=== PATIENT | male | born 1965 | race African-American/Black ===

== ENCOUNTER 2016-11-15 16:26 | Observation (INO) | payer OTHER ==
[~2016-11-15] VITALS: Ht 185.4 cm; Wt 63.1 kg
[~2016-11-15 16:26] MED LIST: CEPHALEXIN500 MG PO; CLEOCIN IV; CLONAZEPAM0.5 MG PO; Catapres PO; Creon 24 PO; Dilaudid IV; ENDOCET 5-3251 EACH PO; FLEXERIL10 MG PO; HURRICAINE SPRA60 ML MM; LANTUS 3 M100 UNITS1 SC; LEVEMIR FL100 UNIT/1 SC; LEVEMIR100 UNIT/2 SC; LISINOPRIL10 MG PO; NIFEDIPINE ER60 MG PO; NOVOLOG PE100 UNITS/ SC; OXYCODONE-ACET1 EACH PO; OXYCODONE-APAP1 EACH PO; PERCOCET 5/31 TABLET PO; PRILOSEC40 MG; PriLOSEC PO; SERTRALINE HCL50 MG PO; SILVASORB1.5 OZ TP; VERAPAMIL HCL120 MG PO; Vicodin,Norco 5/325 PO; ZOSYN 3.3753.375 GM IV; Zestril,Prinivil PO
[2016-11-15 17:15] LABS: HEMATOCRIT 33.6 % (38.0-50.0); MCH 27.5 PG (29.0-34.0); MCHC 33.3 G/DL (30.0-36.0); MCV 82.6 FL (86-99); MEAN PLAT.VOLUME 10.9 uM^3 (9.0-12.4); PLATELET COUNT 219 K/uL (156-360); RBC DIS.WIDTH-CV 13.4 % (11.8-14.6); RBC DIS.WIDTH-SD 39.5 % (39-53); RED BLOOD COUNT 4.07 M/uL (4.00-5.50); WHITE BLOOD COUNT 9.3 K/uL (4.1-10.2)
[2016-11-15 17:35] LABS: CHLORIDE 103 mEq/L (99-109); SODIUM 135 mEq/L (136-147)
[2016-11-15 17:38] LABS: ANION GAP 7 MEQ/L (2-14)
[2016-11-15 17:40] LABS: GFR ESTIMATE (CALCULATED) > 59 mL/min/
[2016-11-15 17:41] LABS: TROP-I INTERPRETATION NEGATIVE; TROPONIN-I 0.02 ng/mL (0.0-0.30); UREA NITROGEN (BUN) 13 mg/dL (9-23)
[2016-11-15 17:43] LABS: CREATINE KINASE 164 IU/L (1-294); GLUCOSE 686 mg/dL (70-99)
[2016-11-15 18:38] LABS: POINT-OF-CARE METER ID UU14100415; POINT-OF-CARE USER ID LABGLH01
[2016-11-15] MEDS ORDERED: PRINIVIL10 MG PO (19:32)
[2016-11-15] MEDS ORDERED: OXYCODONE HCL20 M1 PO (19:33)
[2016-11-15] MEDS ORDERED: PERCOCET 5/31 TABLET PO (19:33)
[2016-11-15] MEDS ORDERED: CATAPRES0.1 MG PO (19:33)
[2016-11-15] MEDS ORDERED: NOVOLOG 10100 UNITS/ SC (19:34)
[2016-11-15] MEDS ORDERED: LEVEMIR100 UNIT/2 SC (19:34)
[2016-11-16 00:19] VITALS: BP 141/87
[2016-11-16 03:43] VITALS: BP 111/69
[2016-11-16 05:29] LABS: POINT-OF-CARE METER ID UU14162513
[2016-11-16 07:33] VITALS: BP 155/93
[2016-11-16 08:39] LABS: POINT-OF-CARE METER ID UU13113831
[2016-11-16 08:59] LABS: ANION GAP 6 MEQ/L (2-14); CHLORIDE 107 MEQ/L (99-109); GFR ESTIMATE (CALCULATED) > 59 mL/min/; POTASSIUM 3.7 MEQ/L (3.7-5.4); SAMPLE HEMOLYSIS CHECK 0; SAMPLE ICTERIC CHECK 0; SAMPLE LIPEMIA CHECK 0; SODIUM 138 MEQ/L (136-147); UREA NITROGEN (BUN) 10 mg/dL (9-23)
[2016-11-16 09:02] LABS: GLUCOSE 222 mg/dL (70-99)
[2016-11-16] MEDS ORDERED: LISINOPRIL10 MG PO (10:09)
[2016-11-16] MEDS ORDERED: VERAPAMIL HCL120 MG PO (10:09)
[2016-11-16 10:29] LABS: POINT-OF-CARE METER ID UU13113700
[2016-11-16 12:40] LABS: POINT-OF-CARE METER ID UU13113831
== END 2016-11-16 14:23 | disposition home or self-care (01) ==
LOC: EME → EDBD 16:26 → EDOF 20:01 → 5WEST 20:01
PROVIDERS: Emergency Medicine; Hospitalist; Internal Medicine
DX: I16.0 Hypertensive urgency (principal); I10 Essential (primary) hypertension; E11.65 Type 2 diabetes mellitus with hyperglycemia; N17.9 Acute kidney failure, unspecified; R42 Dizziness and giddiness; G89.29 Other chronic pain; R51 Headache; F17.200 Nicotine dependence, unspecified, uncomplicated; Z91.128 Patient's intentional underdosing of medication regimen for other reason; T46.4X6A Underdosing of angiotensin-converting-enzyme inhibitors, initial encounter; T38.3X6A Underdosing of insulin and oral hypoglycemic [antidiabetic] drugs, initial encounter; Z88.8 Allergy status to other drugs, medicaments and biological substances; Z91.041 Radiographic dye allergy status
CPT/HCPCS: 70450; 80048; 81003; 82009; 82010; 82550; 82948; 83036; 83930; 84484; 85027; 93005; 99281; 99285; G0378; J0780; J1200; J1650; J1815; J7030

== ENCOUNTER 2016-12-08 17:35 | Inpatient (IN) | payer OTHER ==
[~2016-12-08] VITALS: Ht 185.4 cm; Wt 65.3 kg
[~2016-12-08 17:35] MED LIST changes: +CATAPRES0.1 MG PO; +NOVOLOG 10100 UNITS/ SC; +OXYCODONE HCL20 M1 PO; +PRINIVIL10 MG PO
[2016-12-08 19:34] LABS: ADD MIUA? YES; BILIRUBIN NEGATIVE; BLOOD SMALL; COLOR STRAW ((YELLOW)); GLUCOSE (STRIP) >=500; KETONES NEGATIVE; LEUKOCYTES NEGATIVE; NITRITE NEGATIVE; PROTEIN (STRIP) 100; SPECIFIC GRAVITY 1.025 (1.000-1.030); UROBILINOGEN 0.2 MG/DL (0.2-1.0)
[2016-12-08 19:38] LABS: BACTERIA NONE SEEN /HPF; EPITHELIAL CELLS NONE SEEN /HPF; MUCUS NONE SEEN /LPF; RED BLOOD CELLS 0-5 /HPF (0-5); WHITE BLOOD CELLS 0-5 /HPF (0-5)
[2016-12-08 20:35] LABS: EOSINOPHIL (%) 0.1 % (0-5); HEMATOCRIT 35.4 % (38.0-50.0); IMMATURE GRANULOCYTE (%) 0.6 % (0.0-0.7); IMMATURE GRANULOCYTE COUNT 0.1 K/uL; INSTRUMENT ABS NEUTROPHIL CT 8.9 K/uL; MCH 26.7 PG (29.0-34.0); MCHC 32.5 G/DL (30.0-36.0); MCV 82.3 FL (86-99); MEAN PLAT.VOLUME 10.9 uM^3 (9.0-12.4); MONOCYTE (%) 7.4 % (3-12); MONOCYTE COUNT 0.8 K/uL (0-0.8); NEUTROPHIL (%) 82.4 % (45-76); NEUTROPHIL COUNT 8.9 K/uL (1.8-6.4); RBC DIS.WIDTH-CV 13.4 % (11.8-14.6); RBC DIS.WIDTH-SD 39.8 % (39-53); WHITE BLOOD COUNT 10.8 K/uL (4.1-10.2)
[2016-12-08 20:38] LABS: CARBON DIOXIDE (BICARBONATE) 28.5 MEQ/L (20-31)
[2016-12-08 20:39] LABS: PLATELET COUNT 312 K/uL (156-360)
[2016-12-08 20:49] LABS: CHLORIDE 101 mEq/L (99-109); POTASSIUM 3.8 mEq/L (3.7-5.4); SODIUM 135 mEq/L (136-147)
[2016-12-08 20:53] LABS: ANION GAP 10 MEQ/L (2-14); TOTAL BILIRUBIN 0.3 mg/dL (0.0-1.0)
[2016-12-08 20:55] LABS: ALKALINE PHOSPHATASE 233 IU/L (3-129); GFR ESTIMATE (CALCULATED) > 59 mL/min/
[2016-12-08 20:56] LABS: UREA NITROGEN (BUN) 14 mg/dL (9-23)
[2016-12-08 20:57] LABS: TROP-I INTERPRETATION NEGATIVE; TROPONIN-I 0.03 ng/mL (0.0-0.30)
[2016-12-08 21:08] LABS: GLUCOSE 746 mg/dL (70-99)
[2016-12-08] MEDS ORDERED: OXYCODONE HCL10 MG PO (22:46)
[2016-12-08 23:47] LABS: POINT-OF-CARE METER ID UU13113702; POINT-OF-CARE USER ID 608261302
[2016-12-09 04:52] LABS: POINT-OF-CARE METER ID UU13113702
[2016-12-09 06:56] LABS: HEMATOCRIT 36.3 % (38.0-50.0); MCH 26.5 PG (29.0-34.0); MCV 82.9 FL (86-99); MEAN PLAT.VOLUME 11.9 uM^3 (9.0-12.4); PLATELET COUNT 294 K/uL (156-360); RBC DIS.WIDTH-CV 13.5 % (11.8-14.6); RBC DIS.WIDTH-SD 40.8 % (39-53); RED BLOOD COUNT 4.38 M/uL (4.00-5.50); WHITE BLOOD COUNT 11.2 K/uL (4.1-10.2)
[2016-12-09 07:18] LABS: ANION GAP 11 MEQ/L (2-14); CHLORIDE 102 MEQ/L (99-109); CREATINE KINASE 224 IU/L (1-294); GFR ESTIMATE (CALCULATED) > 59 mL/min/; POTASSIUM 3.6 MEQ/L (3.7-5.4); SAMPLE HEMOLYSIS CHECK 0; SAMPLE ICTERIC CHECK 0; SAMPLE LIPEMIA CHECK 0; SODIUM 137 MEQ/L (136-147); UREA NITROGEN (BUN) 12 mg/dL (9-23)
[2016-12-09 07:24] LABS: GLUCOSE 271 mg/dL (70-99)
[2016-12-09 07:38] VITALS: BP 150/93
[2016-12-09 11:19] VITALS: BP 147/95
[2016-12-09 15:53] VITALS: BP 149/97
[2016-12-09 21:03] LABS: POINT-OF-CARE METER ID UU14188625; POINT-OF-CARE USER ID BHSKTD
[2016-12-09 21:29] LABS: C DIFF TOXIN POSITIVE (NEGATIVE); PROBE CHECK PASS
[2016-12-09 21:35] VITALS: BP 108/67
[2016-12-10 03:43] LABS: POINT-OF-CARE METER ID UU14188625; POINT-OF-CARE USER ID BHSKTD
[2016-12-10 03:48] VITALS: BP 118/71
[2016-12-10 05:43] LABS: POINT-OF-CARE METER ID UU14188625; POINT-OF-CARE USER ID BHSKTD
[2016-12-10 06:32] LABS: HEMATOCRIT 29.9 % (38.0-50.0); MCH 27.1 PG (29.0-34.0); MCHC 31.8 G/DL (30.0-36.0); MCV 85.2 FL (86-99); MEAN PLAT.VOLUME 11.5 uM^3 (9.0-12.4); PLATELET COUNT 267 K/uL (156-360); RBC DIS.WIDTH-SD 43.5 % (39-53); RED BLOOD COUNT 3.51 M/uL (4.00-5.50); WHITE BLOOD COUNT 11.3 K/uL (4.1-10.2)
[2016-12-10 06:58] LABS: ANION GAP 9 MEQ/L (2-14); CHLORIDE 105 MEQ/L (99-109); GFR ESTIMATE (CALCULATED) > 59 mL/min/; POTASSIUM 3.4 MEQ/L (3.7-5.4); SAMPLE HEMOLYSIS CHECK 0; SAMPLE ICTERIC CHECK 0; SAMPLE LIPEMIA CHECK 0; SODIUM 138 MEQ/L (136-147); UREA NITROGEN (BUN) 19 mg/dL (9-23)
[2016-12-10 07:03] LABS: GLUCOSE 66 mg/dL (70-99)
[2016-12-10 07:24] VITALS: BP 125/69
[2016-12-10 09:15] LABS: FERRITIN 90 NG/ML (22-322); IRON 33 MCG/DL (35-150)
[2016-12-10 11:07] VITALS: BP 126/77
[2016-12-10 12:36] LABS: POINT-OF-CARE METER ID UU14188625
[2016-12-10 13:02] LABS: HEMATOCRIT 29.6 % (38.0-50.0); MCV 85.8 FL (86-99)
[2016-12-10 15:22] VITALS: BP 116/69
[2016-12-10 16:21] LABS: CREATINE KINASE 187 IU/L (1-294)
[2016-12-10 18:09] LABS: POINT-OF-CARE METER ID UU14188625
[2016-12-10 18:30] LABS: POINT-OF-CARE METER ID UU14188625
[2016-12-10 19:29] VITALS: BP 172/94
[2016-12-10 21:29] LABS: POINT-OF-CARE METER ID UU14174225
[2016-12-11] VITALS (7 sets, daily range): BP systolic 125–180; BP diastolic 76–104
[2016-12-11 00:23] LABS: POINT-OF-CARE METER ID UU14188625; POINT-OF-CARE USER ID BHSKTD
[2016-12-11 05:23] LABS: POINT-OF-CARE METER ID UU14174225; POINT-OF-CARE USER ID BHSKTD
[2016-12-11 07:18] LABS: HEMATOCRIT 30.9 % (38.0-50.0); MCH 27.1 PG (29.0-34.0); MCHC 31.4 G/DL (30.0-36.0); MCV 86.3 FL (86-99); RBC DIS.WIDTH-CV 14.3 % (11.8-14.6); RBC DIS.WIDTH-SD 45.7 % (39-53); RED BLOOD COUNT 3.58 M/uL (4.00-5.50); WHITE BLOOD COUNT 12.5 K/uL (4.1-10.2)
[2016-12-11 07:21] LABS: ANION GAP 7 MEQ/L (2-14); CHLORIDE 107 MEQ/L (99-109); GFR ESTIMATE (CALCULATED) > 59 mL/min/; SAMPLE HEMOLYSIS CHECK 0; SAMPLE ICTERIC CHECK 0; SAMPLE LIPEMIA CHECK 0; SODIUM 139 MEQ/L (136-147); UREA NITROGEN (BUN) 18 mg/dL (9-23)
[2016-12-11 07:26] LABS: GLUCOSE 88 mg/dL (70-99); POTASSIUM 4.2 MEQ/L (3.7-5.4)
[2016-12-11 07:59] LABS: CREATINE KINASE 238 IU/L (1-294)
[2016-12-11 08:14] LABS: MEAN PLAT.VOLUME 12.6 uM^3 (9.0-12.4)
[2016-12-11 11:00] LABS: POINT-OF-CARE METER ID UU14188625
[2016-12-11 15:55] LABS: POINT-OF-CARE METER ID UU14188625
[2016-12-12 04:00] VITALS: BP 170/105
[2016-12-12 05:45] LABS: POINT-OF-CARE METER ID UU14174225
[2016-12-12 07:30] LABS: HEMATOCRIT 30.3 % (38.0-50.0); MCHC 31.4 G/DL (30.0-36.0); MCV 86.1 FL (86-99); MEAN PLAT.VOLUME 11.5 uM^3 (9.0-12.4); PLATELET COUNT 295 K/uL (156-360); RBC DIS.WIDTH-CV 14.5 % (11.8-14.6); RBC DIS.WIDTH-SD 45.8 % (39-53); RED BLOOD COUNT 3.52 M/uL (4.00-5.50); WHITE BLOOD COUNT 12.5 K/uL (4.1-10.2)
[2016-12-12 07:44] VITALS: BP 160/110
[2016-12-12 07:47] LABS: POINT-OF-CARE METER ID UU14174225
[2016-12-12 10:10] LABS: HBSG INDEX 0.18
[2016-12-12 10:12] LABS: HIV INDEX 0.08; HIV-1/2 AB/AG COMBO Nonreactive
[2016-12-12 11:18] VITALS: BP 162/105
[2016-12-12 13:26] LABS: JO-1 ANTIBODY 17 U/mL (0-99)
[2016-12-12 15:22] VITALS: BP 164/98
[2016-12-12 19:41] VITALS: BP 160/93
[2016-12-13] VITALS (7 sets, daily range): BP systolic 140–195; BP diastolic 77–115
[2016-12-13 03:06] LABS: POINT-OF-CARE METER ID UU14188625
[2016-12-13 06:56] LABS: HEMATOCRIT 30.4 % (38.0-50.0); MCHC 31.6 G/DL (30.0-36.0); MCV 85.6 FL (86-99); MEAN PLAT.VOLUME 11.5 uM^3 (9.0-12.4); PLATELET COUNT 313 K/uL (156-360); RBC DIS.WIDTH-CV 14.6 % (11.8-14.6); RBC DIS.WIDTH-SD 45.9 % (39-53); RED BLOOD COUNT 3.55 M/uL (4.00-5.50); WHITE BLOOD COUNT 11.2 K/uL (4.1-10.2)
[2016-12-13 07:33] LABS: ANION GAP 7 MEQ/L (2-14); CHLORIDE 105 MEQ/L (99-109); GFR ESTIMATE (CALCULATED) > 59 mL/min/; POTASSIUM 4.8 MEQ/L (3.7-5.4); SAMPLE HEMOLYSIS CHECK 0; SAMPLE ICTERIC CHECK 0; SAMPLE LIPEMIA CHECK 0; SODIUM 138 MEQ/L (136-147); UREA NITROGEN (BUN) 15 mg/dL (9-23)
[2016-12-13 07:35] LABS: GLUCOSE 337 mg/dL (70-99)
[2016-12-13 10:50] LABS: POINT-OF-CARE METER ID UU14188625
[2016-12-13 12:36] LABS: POINT-OF-CARE METER ID UU14188625
[2016-12-13 16:41] LABS: POINT-OF-CARE METER ID UU14188625
[2016-12-13 22:37] LABS: POINT-OF-CARE METER ID UU14174225
[2016-12-14] VITALS (9 sets, daily range): BP systolic 148–174; BP diastolic 80–110
[2016-12-14 07:26] LABS: EOSINOPHIL (%) 0.9 % (0-5); EOSINOPHIL COUNT 0.1 K/uL (0-0.3); HEMATOCRIT 30.5 % (38.0-50.0); IMMATURE GRANULOCYTE (%) 0.5 % (0.0-0.7); IMMATURE GRANULOCYTE COUNT 0.1 K/uL; INSTRUMENT ABS NEUTROPHIL CT 6.9 K/uL; LYMPHOCYTE COUNT 1.5 K/uL (1.0-2.8); MCH 26.8 PG (29.0-34.0); MCHC 31.1 G/DL (30.0-36.0); MCV 85.9 FL (86-99); MEAN PLAT.VOLUME 10.9 uM^3 (9.0-12.4); MONOCYTE (%) 7.3 % (3-12); MONOCYTE COUNT 0.7 K/uL (0-0.8); NEUTROPHIL (%) 75.2 % (45-76); NEUTROPHIL COUNT 6.9 K/uL (1.8-6.4); PLATELET COUNT 336 K/uL (156-360); RBC DIS.WIDTH-CV 14.7 % (11.8-14.6); RED BLOOD COUNT 3.55 M/uL (4.00-5.50); WHITE BLOOD COUNT 9.2 K/uL (4.1-10.2)
[2016-12-14 07:58] LABS: ANION GAP 7 MEQ/L (2-14); CHLORIDE 106 MEQ/L (99-109); GFR ESTIMATE (CALCULATED) > 59 mL/min/; POTASSIUM 4.1 MEQ/L (3.7-5.4); SAMPLE HEMOLYSIS CHECK 0; SAMPLE ICTERIC CHECK 0; SAMPLE LIPEMIA CHECK 0; SODIUM 140 MEQ/L (136-147); UREA NITROGEN (BUN) 12 mg/dL (9-23)
[2016-12-14 08:06] LABS: GLUCOSE 165 mg/dL (70-99)
[2016-12-14 08:15] LABS: POINT-OF-CARE METER ID UU14174225
[2016-12-14 08:58] LABS: ALKALINE PHOSPHATASE 89 IU/L (3-129); C-REACTIVE PROTEIN 26.8 MG/L (0-10); DIRECT BILIRUBIN 0.1 mg/dL (0.0-0.3); TOTAL BILIRUBIN 0.3 MG/DL (0.0-1.0)
[2016-12-14 12:03] LABS: POC NON-PRINT COM 1 ND
[2016-12-14 12:15] LABS: POINT-OF-CARE METER ID UU14174225
[2016-12-14 13:49] LABS: POINT-OF-CARE METER ID UU14174225
[2016-12-15 00:21] VITALS: BP 152/96
[2016-12-15 04:08] VITALS: BP 153/95
[2016-12-15 07:09] LABS: EOSINOPHIL (%) 1.3 % (0-5); EOSINOPHIL COUNT 0.1 K/uL (0-0.3); HEMATOCRIT 32.2 % (38.0-50.0); IMMATURE GRANULOCYTE COUNT 0.1 K/uL; LYMPHOCYTE COUNT 1.4 K/uL (1.0-2.8); MCH 26.4 PG (29.0-34.0); MCHC 30.7 G/DL (30.0-36.0); MCV 85.9 FL (86-99); MONOCYTE (%) 8.7 % (3-12); MONOCYTE COUNT 0.8 K/uL (0-0.8); NEUTROPHIL (%) 74.3 % (45-76); PLATELET COUNT 365 K/uL (156-360); RBC DIS.WIDTH-SD 47.5 % (39-53); RED BLOOD COUNT 3.75 M/uL (4.00-5.50); WHITE BLOOD COUNT 9.5 K/uL (4.1-10.2)
[2016-12-15 07:28] LABS: ANION GAP 9 MEQ/L (2-14); CHLORIDE 104 MEQ/L (99-109); GFR ESTIMATE (CALCULATED) > 59 mL/min/; GLUCOSE 146 mg/dL (70-99); POTASSIUM 4.3 MEQ/L (3.7-5.4); SAMPLE HEMOLYSIS CHECK 0; SAMPLE ICTERIC CHECK 0; SAMPLE LIPEMIA CHECK 0; SODIUM 141 MEQ/L (136-147); UREA NITROGEN (BUN) 11 mg/dL (9-23)
[2016-12-15 07:46] VITALS: BP 152/90
[2016-12-15 08:27] LABS: ERTH.SED.RATE 110 MM/HR (0-15)
[2016-12-15 11:56] VITALS: BP 148/82
[2016-12-15 16:04] VITALS: BP 150/84
[2016-12-15 20:00] VITALS: BP 160/83
[2016-12-15 20:59] LABS: M. pneumoniae Ab, IgG 1.72 (<=0.90)
[2016-12-15 21:49] LABS: POINT-OF-CARE METER ID UU14174225
[2016-12-16] VITALS: BP 145/65
[2016-12-16 04:00] VITALS: BP 150/73
[2016-12-16 07:33] LABS: EOSINOPHIL (%) 0.4 % (0-5); IMMATURE GRANULOCYTE COUNT 0.1 K/uL; INSTRUMENT ABS NEUTROPHIL CT 8.1 K/uL; LYMPHOCYTE COUNT 1.5 K/uL (1.0-2.8); MCH 26.5 PG (29.0-34.0); MCHC 30.6 G/DL (30.0-36.0); MCV 86.6 FL (86-99); MEAN PLAT.VOLUME 10.6 uM^3 (9.0-12.4); MONOCYTE (%) 9.7 % (3-12); MONOCYTE COUNT 1.1 K/uL (0-0.8); NEUTROPHIL (%) 74.5 % (45-76); NEUTROPHIL COUNT 8.1 K/uL (1.8-6.4); PLATELET COUNT 361 K/uL (156-360); RED BLOOD COUNT 3.58 M/uL (4.00-5.50); WHITE BLOOD COUNT 10.9 K/uL (4.1-10.2)
[2016-12-16 08:00] VITALS: BP 175/98
[2016-12-16 08:07] LABS: ANION GAP 10 MEQ/L (2-14); CHLORIDE 99 MEQ/L (99-109); GFR ESTIMATE (CALCULATED) > 59 mL/min/; SAMPLE HEMOLYSIS CHECK 0; SAMPLE ICTERIC CHECK 0; SAMPLE LIPEMIA CHECK 0; SODIUM 134 MEQ/L (136-147); UREA NITROGEN (BUN) 9 mg/dL (9-23)
[2016-12-16 08:08] LABS: GLUCOSE 233 mg/dL (70-99)
[2016-12-16 08:30] LABS: POINT-OF-CARE METER ID UU14188625; POINT-OF-CARE USER ID BHSKTD
[2016-12-16 08:42] LABS: POINT-OF-CARE METER ID UU14188625
[2016-12-16 08:42] LABS: POINT-OF-CARE METER ID UU14188625
[2016-12-16 11:56] LABS: ERTH.SED.RATE 119 MM/HR (0-15)
[2016-12-16 12:02] LABS: POINT-OF-CARE METER ID UU14174225
[2016-12-16] MEDS ORDERED: DYNAPEN 250 MG250 MG PO (12:19)
[2016-12-16] MEDS ORDERED: VANCOMYCIN HCL125 MG PO (12:19)
[2016-12-16] MEDS ORDERED: PREDNISONE20 MG PO (12:25)
[2016-12-16] MEDS ORDERED: LIDOCAINE700 MG TD (12:25)
[2016-12-16] MEDS ORDERED: OXYCODONE HCL5 MG PO ×2 (12:25)
[2016-12-16] MEDS ORDERED: FERROUS SULFAT325 MG PO (12:25)
[2016-12-16] MEDS ORDERED: FAMOTIDINE20 MG PO (12:25)
[2016-12-16] MEDS ORDERED: FLORASTOR250 MG GT (12:25)
== END 2016-12-16 15:42 | DRG 305 ==
LOC: EME → EDBD 17:35 → EME 17:35 → EDOF 12-09 03:55 → 5SOUTH 12-09 03:55
PROVIDERS: Emergency Medicine; Hospitalist; Internal Medicine; Internal Medicine Infectious Disease; Nurse Practitioner Adult Health; Physician Assistant Medical
PROC: 05HP33Z Insertion of Infusion Device into Right External Jugular Vein, Percutaneous Approach (ICD-10-PCS; principal; 2016-12-09)
DX: I16.0 Hypertensive urgency (principal); I67.4 Hypertensive encephalopathy; A04.7 Enterocolitis due to Clostridium difficile; N17.9 Acute kidney failure, unspecified; E11.65 Type 2 diabetes mellitus with hyperglycemia; D50.9 Iron deficiency anemia, unspecified; M60.9 Myositis, unspecified; G89.29 Other chronic pain; Z91.14 Patient's other noncompliance with medication regimen; M79.652 Pain in left thigh; R51 Headache; Z79.4 Long term (current) use of insulin; F17.210 Nicotine dependence, cigarettes, uncomplicated; E86.0 Dehydration; S89.92XA Unspecified injury of left lower leg, initial encounter; Z87.19 Personal history of other diseases of the digestive system; K21.9 Gastro-esophageal reflux disease without esophagitis
CPT/HCPCS: 70450; 71020; 73552; 73700; 73720; 80048; 80053; 80076; 81003; 82010; 82085 90; 82164 90; 82272; 82550; 82728; 82746; 82803; 82948; 83540; 83605; 84466; 84484; 85014; 85018; 85025; 85027; 85651; 86140; 86235; 86703; 86738 90; 86803; 87040; 87340; 87493; 93005; 93971; 97530 GP; 99281; 99285; J0360; J1644; J1815; J3010; J7030; J7050; J7512; S0030; S0032

== ENCOUNTER 2017-08-18 10:32 | Emergency (ER) | payer OTHER ==
[~2017-08-18] VITALS: Ht 185.4 cm; Wt 68.6 kg
[~2017-08-18 10:32] MED LIST changes: +DYNAPEN 250 MG250 MG PO; +FAMOTIDINE20 MG PO; +FERROUS SULFAT325 MG PO; +FLORASTOR250 MG GT; +LIDOCAINE700 MG TD; +OXYCODONE HCL10 MG PO; +OXYCODONE HCL5 MG PO; +PREDNISONE20 MG PO; +VANCOMYCIN HCL125 MG PO
[2017-08-18 12:15] VITALS: BP 168/116
== END 2017-08-18 12:04 | disposition left against medical advice (07) ==
LOC: EME 10:32
DX: I10 Essential (primary) hypertension (principal); E11.65 Type 2 diabetes mellitus with hyperglycemia; G89.29 Other chronic pain; M79.604 Pain in right leg; M79.605 Pain in left leg; Z91.14 Patient's other noncompliance with medication regimen; R60.0 Localized edema; Z79.4 Long term (current) use of insulin; F17.200 Nicotine dependence, unspecified, uncomplicated; Z53.29 Procedure and treatment not carried out because of patient's decision for other reasons

== ENCOUNTER 2017-08-23 09:17 | Observation (INO) | payer OTHER ==
[~2017-08-23] VITALS: Ht 185.4 cm; Wt 68.6 kg
[2017-08-23] MEDS ORDERED: ASPIRIN81 M2 PO (09:50)
[2017-08-23 10:15] LABS: EOSINOPHIL (%) 0.4 % (0-5); HEMATOCRIT 32.6 % (38.0-50.0); IMMATURE GRANULOCYTE (%) 0.3 % (0.0-0.7); INSTRUMENT ABS NEUTROPHIL CT 5.9 K/uL; LYMPHOCYTE COUNT 1.1 K/uL (1.0-2.8); MCH 26.8 PG (29.0-34.0); MCHC 32.8 G/DL (30.0-36.0); MCV 81.5 FL (86-99); MEAN PLAT.VOLUME 11.2 uM^3 (9.0-12.4); MONOCYTE (%) 6.3 % (3-12); MONOCYTE COUNT 0.5 K/uL (0-0.8); NEUTROPHIL (%) 78.1 % (45-76); NEUTROPHIL COUNT 5.9 K/uL (1.8-6.4); PLATELET COUNT 185 K/uL (156-360); RBC DIS.WIDTH-CV 13.7 % (11.8-14.6); RBC DIS.WIDTH-SD 40.8 % (39-53); WHITE BLOOD COUNT 7.5 K/uL (4.1-10.2)
[2017-08-23 10:16] LABS: CARBON DIOXIDE (BICARBONATE) 30.5 MEQ/L (20-31)
[2017-08-23 10:24] LABS: CHLORIDE 99 mEq/L (99-109); POTASSIUM 3.7 mEq/L (3.7-5.4); SODIUM 133 mEq/L (136-147)
[2017-08-23 10:27] LABS: ANION GAP 8 MEQ/L (2-14); GLUCOSE 655 mg/dL (70-99)
[2017-08-23 10:29] LABS: GFR ESTIMATE (CALCULATED) > 59 mL/min/
[2017-08-23 10:30] LABS: UREA NITROGEN (BUN) 7 mg/dL (9-23)
[2017-08-23 11:18] LABS: ADD MIUA? YES; BILIRUBIN NEGATIVE; BLOOD SMALL; COLOR STRAW ((YELLOW)); GLUCOSE (STRIP) >=500; KETONES NEGATIVE; LEUKOCYTES NEGATIVE; NITRITE NEGATIVE; PROTEIN (STRIP) 100; SPECIFIC GRAVITY 1.023 (1.000-1.030); UROBILINOGEN 0.2 MG/DL (0.2-1.0)
[2017-08-23 11:21] LABS: BACTERIA NONE SEEN /HPF; EPITHELIAL CELLS NONE SEEN /HPF; MUCUS NONE SEEN /LPF; RED BLOOD CELLS 0-5 /HPF (0-5); WHITE BLOOD CELLS 0-5 /HPF (0-5)
[2017-08-23 12:34] LABS: TROP-I INTERPRETATION NEGATIVE; TROPONIN-I 0.01 ng/mL (0.0-0.30)
[2017-08-23] MEDS ORDERED: LISINOPRIL10 MG PO (12:57)
[2017-08-23] MEDS ORDERED: VERAPAMIL HCL120 MG PO (12:58)
[2017-08-23] MEDS ORDERED: FUROSEMIDE40 MG PO (12:59)
[2017-08-23] MEDS ORDERED: MOTRIN IB200 MG PO (13:00)
[2017-08-23 13:53] VITALS: BP 119/73
[2017-08-23 17:41] VITALS: BP 146/88
[2017-08-23 18:48] LABS: TROP-I INTERPRETATION NEGATIVE; TROPONIN-I < 0.01 ng/mL (0.0-0.30)
[2017-08-23 20:00] VITALS: BP 145/95
[2017-08-23 21:25] LABS: POINT-OF-CARE METER ID UU13113700
[2017-08-23 23:20] LABS: POINT-OF-CARE METER ID UU13113700
[2017-08-23 23:44] LABS: POINT-OF-CARE METER ID UU13113700
[2017-08-23 23:49] VITALS: BP 126/75
[2017-08-24 01:17] LABS: TROP-I INTERPRETATION NEGATIVE; TROPONIN-I < 0.01 ng/mL (0.0-0.30)
[2017-08-24 03:44] LABS: POINT-OF-CARE METER ID UU13113700
[2017-08-24 03:47] VITALS: BP 143/81
[2017-08-24 05:08] LABS: CHLORIDE 106 mEq/L (99-109); SODIUM 134 mEq/L (136-147)
[2017-08-24 05:11] LABS: ANION GAP 7 MEQ/L (2-14)
[2017-08-24 05:14] LABS: GFR ESTIMATE (CALCULATED) > 59 mL/min/
[2017-08-24 05:15] LABS: GLUCOSE 231 mg/dL (70-99); UREA NITROGEN (BUN) 11 mg/dL (9-23)
[2017-08-24 06:58] VITALS: BP 139/88
[2017-08-24 07:35] LABS: HEMOGLOBIN A1c (GLYCOHEMOGLOB) > 19.2 % HGB (Below 5.7)
[2017-08-24] MEDS ORDERED: CATAPRES0.1 MG PO (08:27)
[2017-08-24] MEDS ORDERED: VERAPAMIL HCL120 MG PO (08:27)
[2017-08-24] MEDS ORDERED: SERTRALINE HCL50 MG PO (08:28)
[2017-08-24] MEDS ORDERED: LISINOPRIL10 MG PO (08:28)
[2017-08-24] MEDS ORDERED: FUROSEMIDE40 MG PO (08:28)
[2017-08-24] MEDS ORDERED: NOVOLOG 10100 UNITS/ SC (08:29)
[2017-08-24] MEDS ORDERED: LEVEMIR100 UNIT/2 SC (08:29)
[2017-08-24 08:41] LABS: POINT-OF-CARE METER ID UU13113831
[2017-08-24 14:30] LABS: POINT-OF-CARE METER ID UU13113702
[2017-08-24 14:32] LABS: POINT-OF-CARE METER ID UU13113831
[2017-08-24 14:32] LABS: POINT-OF-CARE METER ID UU13113702
== END 2017-08-24 11:25 | disposition home or self-care (01) ==
LOC: EME 09:17 → EDOF 11:32 → 5WEST 11:32 → ENRESERV 11:35 → EDOF 11:39 → ENRESERV 12:15 → 5WEST 13:35
PROVIDERS: Emergency Medicine; Internal Medicine; Physician Assistant
DX: E11.65 Type 2 diabetes mellitus with hyperglycemia (principal); I16.0 Hypertensive urgency; I10 Essential (primary) hypertension; T46.5X6A Underdosing of other antihypertensive drugs, initial encounter; T38.3X6A Underdosing of insulin and oral hypoglycemic [antidiabetic] drugs, initial encounter; Z91.14 Patient's other noncompliance with medication regimen; Z91.19 Patient's noncompliance with other medical treatment and regimen; F17.200 Nicotine dependence, unspecified, uncomplicated; D64.9 Anemia, unspecified; E87.1 Hypo-osmolality and hyponatremia; I51.7 Cardiomegaly; Z79.4 Long term (current) use of insulin; Z91.041 Radiographic dye allergy status; Z88.8 Allergy status to other drugs, medicaments and biological substances
CPT/HCPCS: 71010; 80048; 81003; 82010; 82803; 82948; 83036; 84484; 85025; 93005; 99202; 99281; 99285; G0378; J0360; J1650; J1815; J7030

== ENCOUNTER 2018-01-03 07:58 | Inpatient (IN) | payer OTHER ==
[~2018-01-03] VITALS: Ht 185.4 cm; Wt 82.5 kg
[~2018-01-03 07:58] MED LIST changes: +ASPIRIN81 M2 PO; +FUROSEMIDE40 MG PO; +MOTRIN IB200 MG PO
[2018-01-03 08:50] LABS: BASOPHIL (%) 0.4 % (0-1); EOSINOPHIL (%) 0.5 % (0-5); HEMATOCRIT 32.7 % (38.0-50.0); HEMOGLOBIN 10.7 G/DL (12.5-16.6); IMMATURE GRANULOCYTE (%) 0.2 % (0.0-0.7); LYMPHOCYTE (%) 11.2 % (15-42); LYMPHOCYTE COUNT 0.9 K/uL (1.0-2.8); MCH 27.7 PG (29.0-34.0); MCHC 32.7 G/DL (30.0-36.0); MCV 84.7 FL (86-99); MONOCYTE (%) 5.3 % (3-12); MONOCYTE COUNT 0.4 K/uL (0-0.8); NEUTROPHIL (%) 82.4 % (45-76); NEUTROPHIL COUNT 6.7 K/uL (1.8-6.4); PLATELET COUNT 239 K/uL (156-360); RBC DIS.WIDTH-CV 12.7 % (11.8-14.6); RBC DIS.WIDTH-SD 38.6 % (39-53); RED BLOOD COUNT 3.86 M/uL (4.00-5.50); WHITE BLOOD COUNT 8.2 K/uL (4.1-10.2)
[2018-01-03 09:01] LABS: CHLORIDE 97 mEq/L (99-109); POTASSIUM 4.1 mEq/L (3.7-5.4); SODIUM 130 mEq/L (136-147)
[2018-01-03 09:06] LABS: CREATININE 1.7 mg/dL (0.6-1.3); GFR ESTIMATE (CALCULATED) 55 mL/min/ (58.99-99999)
[2018-01-03 09:07] LABS: UREA NITROGEN (BUN) 14 mg/dL (9-23)
[2018-01-03 09:08] LABS: GLUCOSE 706 mg/dL (70-99)
[2018-01-03 09:11] LABS: TROP-I INTERPRETATION NEGATIVE; TROPONIN-I 0.03 ng/mL (0.0-0.30)
[2018-01-03 10:22] LABS: APPEARANCE CLEAR ((CLEAR)); BILIRUBIN NEGATIVE; BLOOD SMALL; COLOR STRAW ((YELLOW)); GLUCOSE (STRIP) >=500; KETONES NEGATIVE; LEUKOCYTES NEGATIVE; NITRITE NEGATIVE; PROTEIN (STRIP) >=500; SPECIFIC GRAVITY 1.026 (1.000-1.030); UROBILINOGEN 0.2 MG/DL (0.2-1.0)
[2018-01-03 10:30] LABS: BACTERIA RARE /HPF; EPITHELIAL CELLS RARE /HPF; MUCUS NONE SEEN /LPF; UCUL ADDED? NO; WHITE BLOOD CELLS 0-5 /HPF (0-5)
[2018-01-03] MEDS ORDERED: NOVOLOG PE100 UNITS/ SC (12:52)
[2018-01-03 15:45] LABS: TROP-I INTERPRETATION NEGATIVE; TROPONIN-I 0.04 ng/mL (0.0-0.30)
[2018-01-03 17:50] VITALS: BP 187/125
[2018-01-03 18:03] VITALS: BP 177/111
[2018-01-03 19:20] VITALS: BP 130/80
[2018-01-03 21:33] LABS: TROP-I INTERPRETATION NEGATIVE; TROPONIN-I 0.04 ng/mL (0.0-0.30)
[2018-01-04 00:21] VITALS: BP 96/52
[2018-01-04 03:31] VITALS: BP 98/52
[2018-01-04 04:52] LABS: HEMATOCRIT 28.5 % (38.0-50.0); HEMOGLOBIN 9.5 G/DL (12.5-16.6); MCH 27.8 PG (29.0-34.0); MCHC 33.3 G/DL (30.0-36.0); MCV 83.3 FL (86-99); PLATELET COUNT 221 K/uL (156-360); RBC DIS.WIDTH-CV 12.4 % (11.8-14.6); RED BLOOD COUNT 3.42 M/uL (4.00-5.50); WHITE BLOOD COUNT 7.1 K/uL (4.1-10.2)
[2018-01-04 05:03] LABS: POTASSIUM 4.1 mEq/L (3.7-5.4); SODIUM 136 mEq/L (136-147)
[2018-01-04 05:09] LABS: UREA NITROGEN (BUN) 16 mg/dL (9-23)
[2018-01-04 05:12] LABS: CHLORIDE 108 mEq/L (99-109); GLUCOSE 139 mg/dL (70-99)
[2018-01-04 05:39] LABS: CREATININE 1.5 mg/dL (0.6-1.3); GFR ESTIMATE (CALCULATED) > 59 mL/min/ (58.99-99999)
[2018-01-04 09:15] VITALS: BP 109/67
[2018-01-04 10:11] LABS: HEMOGLOBIN A1c (GLYCOHEMOGLOB) 18.7 % (Below 5.7)
[2018-01-04 11:40] VITALS: BP 94/57
[2018-01-04 17:02] LABS: GLUCOSE 33 mg/dL (70-99)
[2018-01-04 19:56] VITALS: BP 161/97
[2018-01-05] VITALS (7 sets, daily range): BP systolic 132–165; BP diastolic 76–94
[2018-01-05 05:49] LABS: BASOPHIL (%) 0.2 % (0-1); EOSINOPHIL (%) 0.2 % (0-5); HEMATOCRIT 29.5 % (38.0-50.0); HEMOGLOBIN 9.7 G/DL (12.5-16.6); IMMATURE GRANULOCYTE (%) 0.3 % (0.0-0.7); LYMPHOCYTE (%) 9.3 % (15-42); LYMPHOCYTE COUNT 0.9 K/uL (1.0-2.8); MCH 27.5 PG (29.0-34.0); MCHC 32.9 G/DL (30.0-36.0); MCV 83.6 FL (86-99); MONOCYTE (%) 6.2 % (3-12); MONOCYTE COUNT 0.6 K/uL (0-0.8); NEUTROPHIL (%) 83.8 % (45-76); NEUTROPHIL COUNT 8.1 K/uL (1.8-6.4); PLATELET COUNT 221 K/uL (156-360); RBC DIS.WIDTH-CV 12.9 % (11.8-14.6); RBC DIS.WIDTH-SD 38.7 % (39-53); RED BLOOD COUNT 3.53 M/uL (4.00-5.50); WHITE BLOOD COUNT 9.7 K/uL (4.1-10.2)
[2018-01-05 06:29] LABS: CHLORIDE 104 mEq/L (99-109); POTASSIUM 3.9 mEq/L (3.7-5.4); SODIUM 135 mEq/L (136-147)
[2018-01-05 06:33] LABS: GLUCOSE 122 mg/dL (70-99)
[2018-01-05 06:34] LABS: CREATININE 1.4 mg/dL (0.6-1.3); GFR ESTIMATE (CALCULATED) > 59 mL/min/ (58.99-99999)
[2018-01-05 06:35] LABS: UREA NITROGEN (BUN) 20 mg/dL (9-23)
[2018-01-06 04:30] VITALS: BP 164/99
[2018-01-06 06:25] LABS: BASOPHIL (%) 0.2 % (0-1); EOSINOPHIL (%) 0.2 % (0-5); HEMATOCRIT 30.2 % (38.0-50.0); HEMOGLOBIN 9.8 G/DL (12.5-16.6); IMMATURE GRANULOCYTE (%) 0.3 % (0.0-0.7); INTER. NORMALIZED RATIO 0.9; LYMPHOCYTE (%) 9.8 % (15-42); LYMPHOCYTE COUNT 0.9 K/uL (1.0-2.8); MCH 27.8 PG (29.0-34.0); MCHC 32.5 G/DL (30.0-36.0); MCV 85.8 FL (86-99); MONOCYTE (%) 7.3 % (3-12); MONOCYTE COUNT 0.7 K/uL (0-0.8); NEUTROPHIL (%) 82.2 % (45-76); NEUTROPHIL COUNT 7.3 K/uL (1.8-6.4); PLATELET COUNT 222 K/uL (156-360); RBC DIS.WIDTH-CV 13.2 % (11.8-14.6); RBC DIS.WIDTH-SD 41.2 % (39-53); RED BLOOD COUNT 3.52 M/uL (4.00-5.50); WHITE BLOOD COUNT 8.9 K/uL (4.1-10.2)
[2018-01-06 06:28] LABS: PTT 27.5 SEC (25-37)
[2018-01-06 06:43] LABS: ALBUMIN 2.4 G/DL (3.2-4.8); ALKALINE PHOSPHATASE 166 IU/L (3-129); ALT (GPT) 66 IU/L (3-49); AST (GOT) 72 IU/L (2-34); CHLORIDE 103 MEQ/L (99-109); CREATININE 1.4 MG/DL (0.6-1.3); GFR ESTIMATE (CALCULATED) > 59 mL/min/ (58.99-99999); POTASSIUM 4.5 MEQ/L (3.7-5.4); SODIUM 135 MEQ/L (136-147); TOTAL BILIRUBIN 0.2 MG/DL (0.0-1.0); TOTAL PROTEIN 5.4 G/DL (6.4-8.3); UREA NITROGEN (BUN) 23 mg/dL (9-23)
[2018-01-06 06:47] LABS: GLUCOSE 387 mg/dL (70-99)
[2018-01-06 07:26] VITALS: BP 162/92
[2018-01-06 10:51] LABS: MAGNESIUM 1.9 mg/dl (1.3-2.7)
[2018-01-06 11:29] VITALS: BP 114/64
[2018-01-06 15:00] VITALS: BP 132/78
[2018-01-06 19:15] VITALS: BP 155/94
[2018-01-07] VITALS (9 sets, daily range): BP systolic 100–190; BP diastolic 56–98
[2018-01-07 06:20] LABS: HEMATOCRIT 27.4 % (38.0-50.0); HEMOGLOBIN 8.7 G/DL (12.5-16.6); MCH 27.3 PG (29.0-34.0); MCHC 31.8 G/DL (30.0-36.0); MCV 85.9 FL (86-99); PLATELET COUNT 205 K/uL (156-360); RBC DIS.WIDTH-CV 13.1 % (11.8-14.6); RBC DIS.WIDTH-SD 41.3 % (39-53); RED BLOOD COUNT 3.19 M/uL (4.00-5.50); WHITE BLOOD COUNT 8.8 K/uL (4.1-10.2)
[2018-01-07 06:56] LABS: CHLORIDE 104 MEQ/L (99-109); CREATININE 1.3 MG/DL (0.6-1.3); GFR ESTIMATE (CALCULATED) > 59 mL/min/ (58.99-99999); GLUCOSE 282 mg/dL (70-99); MAGNESIUM 1.8 mg/dl (1.3-2.7); POTASSIUM 4.5 MEQ/L (3.7-5.4); SODIUM 137 MEQ/L (136-147); UREA NITROGEN (BUN) 24 mg/dL (9-23)
[2018-01-08] VITALS (8 sets, daily range): BP systolic 126–181; BP diastolic 70–109
[2018-01-08 05:55] LABS: HEMATOCRIT 27.6 % (38.0-50.0); HEMOGLOBIN 8.7 G/DL (12.5-16.6); MCH 26.9 PG (29.0-34.0); MCHC 31.5 G/DL (30.0-36.0); MCV 85.4 FL (86-99); PLATELET COUNT 210 K/uL (156-360); RBC DIS.WIDTH-CV 13.2 % (11.8-14.6); RBC DIS.WIDTH-SD 40.6 % (39-53); RED BLOOD COUNT 3.23 M/uL (4.00-5.50); WHITE BLOOD COUNT 9.9 K/uL (4.1-10.2)
[2018-01-08 06:24] LABS: CHLORIDE 105 MEQ/L (99-109); CREATININE 1.4 MG/DL (0.6-1.3); GFR ESTIMATE (CALCULATED) > 59 mL/min/ (58.99-99999); GLUCOSE 194 mg/dL (70-99); MAGNESIUM 1.7 mg/dl (1.3-2.7); POTASSIUM 3.9 MEQ/L (3.7-5.4); SODIUM 138 MEQ/L (136-147); UREA NITROGEN (BUN) 22 mg/dL (9-23)
[2018-01-09 03:57] VITALS: BP 183/90
[2018-01-09 04:05] VITALS: BP 148/86
[2018-01-09 06:01] LABS: BASOPHIL (%) 0.4 % (0-1); EOSINOPHIL (%) 1.7 % (0-5); EOSINOPHIL COUNT 0.1 K/uL (0-0.3); HEMATOCRIT 27.3 % (38.0-50.0); HEMOGLOBIN 8.6 G/DL (12.5-16.6); IMMATURE GRANULOCYTE (%) 0.7 % (0.0-0.7); LYMPHOCYTE (%) 18.1 % (15-42); LYMPHOCYTE COUNT 1.5 K/uL (1.0-2.8); MCH 27.4 PG (29.0-34.0); MCHC 31.5 G/DL (30.0-36.0); MCV 86.9 FL (86-99); MONOCYTE (%) 12.5 % (3-12); NEUTROPHIL (%) 66.6 % (45-76); NEUTROPHIL COUNT 5.5 K/uL (1.8-6.4); PLATELET COUNT 227 K/uL (156-360); RBC DIS.WIDTH-CV 13.4 % (11.8-14.6); RBC DIS.WIDTH-SD 41.7 % (39-53); RED BLOOD COUNT 3.14 M/uL (4.00-5.50); WHITE BLOOD COUNT 8.2 K/uL (4.1-10.2)
[2018-01-09 06:11] LABS: CHLORIDE 107 MEQ/L (99-109); CREATININE 1.4 MG/DL (0.6-1.3); GFR ESTIMATE (CALCULATED) > 59 mL/min/ (58.99-99999); GLUCOSE 137 mg/dL (70-99); POTASSIUM 4.3 MEQ/L (3.7-5.4); SODIUM 142 MEQ/L (136-147); UREA NITROGEN (BUN) 24 mg/dL (9-23)
[2018-01-09 07:38] VITALS: BP 154/89
[2018-01-09 11:42] VITALS: BP 139/78
[2018-01-09 16:14] VITALS: BP 111/64
[2018-01-09 23:52] VITALS: BP 116/63
[2018-01-10 07:39] VITALS: BP 145/87
[2018-01-10 10:36] LABS: HEMATOCRIT 30.7 % (38.0-50.0); HEMOGLOBIN 9.5 G/DL (12.5-16.6); MCH 26.9 PG (29.0-34.0); MCHC 30.9 G/DL (30.0-36.0); PLATELET COUNT 270 K/uL (156-360); RBC DIS.WIDTH-CV 13.3 % (11.8-14.6); RBC DIS.WIDTH-SD 41.8 % (39-53); RED BLOOD COUNT 3.53 M/uL (4.00-5.50); WHITE BLOOD COUNT 9.8 K/uL (4.1-10.2)
[2018-01-10 11:07] LABS: CHLORIDE 104 MEQ/L (99-109); CREATININE 1.4 MG/DL (0.6-1.3); GFR ESTIMATE (CALCULATED) > 59 mL/min/ (58.99-99999); GLUCOSE 166 mg/dL (70-99); POTASSIUM 4.2 MEQ/L (3.7-5.4); SODIUM 140 MEQ/L (136-147); UREA NITROGEN (BUN) 26 mg/dL (9-23)
[2018-01-10 17:21] VITALS: BP 130/76
[2018-01-11 00:53] VITALS: BP 128/78
[2018-01-11 08:02] VITALS: BP 166/95
[2018-01-11] MEDS ORDERED: LEVEMIR100 UNIT/2 SC (08:15)
[2018-01-11] MEDS ORDERED: LOPRESSOR25 MG PO (08:15)
[2018-01-11] MEDS ORDERED: TAMSULOSIN HCL0.4 MG PO (08:15)
[2018-01-11] MEDS ORDERED: NICOTINE PATCH1 EAC2 TD (08:15)
[2018-01-11] MEDS ORDERED: LISINOPRIL10 MG PO (08:15)
[2018-01-11] MEDS ORDERED: NOVOLOG PE100 UNITS/ SC (08:15)
[2018-01-11] MEDS ORDERED: FUROSEMIDE40 MG PO ×2 (08:15→08:20)
[2018-01-11 10:04] LABS: CHLORIDE 105 MEQ/L (99-109); CREATININE 1.3 MG/DL (0.6-1.3); GFR ESTIMATE (CALCULATED) > 59 mL/min/ (58.99-99999); POTASSIUM 4.3 MEQ/L (3.7-5.4); SODIUM 142 MEQ/L (136-147); UREA NITROGEN (BUN) 26 mg/dL (9-23)
[2018-01-11 10:07] LABS: GLUCOSE 110 mg/dL (70-99)
[2018-01-11 15:38] VITALS: BP 135/83
== END 2018-01-11 15:50 | DRG 682 ==
LOC: EME → EDBD 07:58 → EME 07:58 → EDOF 11:30 → 4EAST 11:30 → 3EAST 11:30 → ENRESERV 11:52 → EDOF 11:55 → ENRESERV 15:14 → 4EAST 17:26 → ENRESERV 01-04 15:24 → CANRESERV 01-04 15:50 → ENRESERV 01-04 15:50 → 4EAST 01-04 17:42 → CANRESERV 01-07 14:47 → ENRESERV 01-07 14:47 → 3EAST 01-07 17:08
PROVIDERS: Emergency Medicine; Hospitalist; Internal Medicine
DX: N17.9 Acute kidney failure, unspecified (principal); I16.0 Hypertensive urgency; I13.0 Hypertensive heart and chronic kidney disease with heart failure and stage 1 through stage 4 chronic kidney disease, or unspecified chronic kidney disease; I50.33 Acute on chronic diastolic (congestive) heart failure; E11.65 Type 2 diabetes mellitus with hyperglycemia; Z91.14 Patient's other noncompliance with medication regimen; E11.649 Type 2 diabetes mellitus with hypoglycemia without coma; E88.09 Other disorders of plasma-protein metabolism, not elsewhere classified; E11.22 Type 2 diabetes mellitus with diabetic chronic kidney disease; N18.9 Chronic kidney disease, unspecified; D64.9 Anemia, unspecified; K21.9 Gastro-esophageal reflux disease without esophagitis; K86.1 Other chronic pancreatitis; N40.1 Benign prostatic hyperplasia with lower urinary tract symptoms; R33.8 Other retention of urine; R31.29 Other microscopic hematuria; F32.9 Major depressive disorder, single episode, unspecified; F41.9 Anxiety disorder, unspecified; R07.9 Chest pain, unspecified; F17.200 Nicotine dependence, unspecified, uncomplicated; Z90.5 Acquired absence of kidney; Z59.0 Homelessness; Z79.4 Long term (current) use of insulin; Z86.73 Personal history of transient ischemic attack (TIA), and cerebral infarction without residual deficits; Z79.82 Long term (current) use of aspirin; Z88.5 Allergy status to narcotic agent; Z91.041 Radiographic dye allergy status
CPT/HCPCS: 71045; 74176; 74181; 76870; 80048; 80053; 81003; 82948; 83036; 83605; 83735; 83880; 84153; 84484; 84999; 85025; 85027; 85610; 85730; 93005; 93306; 93970; 93971; 97530 GO; 99202; 99281; 99285; J0360; J1644; J1815; J1940; J3010; J7030; P9047

== ENCOUNTER → 2018-03-08 | Outpatient (CLI) | payer OTHER ==
[~2018-03-08] MED LIST changes: +LOPRESSOR25 MG PO; +NICOTINE PATCH1 EAC2 TD; +TAMSULOSIN HCL0.4 MG PO
== END | disposition home or self-care (01) ==
LOC: RAD 08:30
DX: J90 Pleural effusion, not elsewhere classified (principal); R06.02 Shortness of breath; R09.02 Hypoxemia
CPT/HCPCS: 71250

== ENCOUNTER 2018-03-31 18:04 | Inpatient (IN) | payer OTHER ==
[~2018-03-31] VITALS: Ht 185.4 cm; Wt 101.0 kg
[2018-03-31 20:20] LABS: HEMATOCRIT 32.4 % (38.0-50.0); HEMOGLOBIN 10.2 G/DL (12.5-16.6); MCH 26.5 PG (29.0-34.0); MCHC 31.5 G/DL (30.0-36.0); MCV 84.2 FL (86-99); PLATELET COUNT 176 K/uL (156-360); RBC DIS.WIDTH-CV 15.9 % (11.8-14.6); RBC DIS.WIDTH-SD 49.1 % (39-53); RED BLOOD COUNT 3.85 M/uL (4.00-5.50); WHITE BLOOD COUNT 7.6 K/uL (4.1-10.2)
[2018-03-31 20:30] LABS: ALBUMIN 3.7 g/dL (3.2-4.8); CHLORIDE 112 mEq/L (99-109); POTASSIUM 5.6 mEq/L (3.7-5.4); SODIUM 139 mEq/L (136-147)
[2018-03-31 20:32] LABS: GLUCOSE 207 mg/dL (70-99); TOTAL PROTEIN 6.3 g/dL (6.4-8.3)
[2018-03-31 20:34] LABS: TOTAL BILIRUBIN 0.5 mg/dL (0.0-1.0)
[2018-03-31 20:36] LABS: ALKALINE PHOSPHATASE 209 IU/L (3-129); CREATININE 2.3 mg/dL (0.6-1.3); GFR ESTIMATE (CALCULATED) 39 mL/min/ (58.99-99999)
[2018-03-31 20:37] LABS: AST (GOT) 178 IU/L (2-34); UREA NITROGEN (BUN) 35 mg/dL (9-23)
[2018-03-31 20:39] LABS: ALT (GPT) 146 IU/L (3-49); LIPASE 9 U/L (1.0-51.0)
[2018-03-31 21:06] LABS: MAGNESIUM 1.8 mg/dl (1.3-2.7)
[2018-03-31 21:23] LABS: THYROTROPIN (TSH) 8.6 MIU/L (0.4-5.5)
[2018-03-31] MEDS ORDERED: ALDACTONE25 MG PO (22:14)
[2018-03-31] MEDS ORDERED: ASCORBIC ACID250 MG PO (22:15)
[2018-03-31] MEDS ORDERED: BASAGLAR K100 UNIT/1 SC (22:16)
[2018-03-31] MEDS ORDERED: CATAPRES0.1 MG PO (22:17)
[2018-03-31] MEDS ORDERED: FERROUS SULFAT325 MG PO (22:18)
[2018-03-31] MEDS ORDERED: LASIX40 MG PO (22:18)
[2018-03-31] MEDS ORDERED: SERTRALINE HCL100 MG PO (22:19)
[2018-03-31] MEDS ORDERED: FLOMAX0.4 MG PO (22:20)
[2018-03-31] MEDS ORDERED: ACETAMINOPHEN650 M5 PO (22:21)
[2018-03-31] MEDS ORDERED: METOPROLOL TAR100 MG PO (22:23)
[2018-03-31] MEDS ORDERED: HYDRALAZINE HCL50 MG PO (22:25)
[2018-03-31] MEDS ORDERED: VERAPAMIL HCL80 MG PO (22:25)
[2018-03-31] MEDS ORDERED: NOVOLOG PE100 UNITS/ SC (22:27)
[2018-03-31] MEDS ORDERED: CATAPRES0.2 MG PO (22:30)
[2018-03-31] MEDS ORDERED: ANTIVERT12.5 MG PO (22:31)
[2018-03-31] MEDS ORDERED: DUONEB 2.5-0.5 M3 ML AEROSOL (22:31)
[2018-03-31] MEDS ORDERED: PERCOCET 5/31 TABLET PO ×2 (22:32→22:33)
[2018-03-31] MEDS ORDERED: TYLENOL REGULA325 MG PO (22:37)
[2018-04-01] VITALS (8 sets, daily range): BP systolic 105–186; BP diastolic 58–119
[2018-04-01 03:18] LABS: HEMATOCRIT 32.3 % (38.0-50.0); HEMOGLOBIN 10.3 G/DL (12.5-16.6); MCH 26.8 PG (29.0-34.0); MCHC 31.9 G/DL (30.0-36.0); MCV 83.9 FL (86-99); PLATELET COUNT 168 K/uL (156-360); RBC DIS.WIDTH-CV 16.2 % (11.8-14.6); RBC DIS.WIDTH-SD 49.1 % (39-53); RED BLOOD COUNT 3.85 M/uL (4.00-5.50); WHITE BLOOD COUNT 7.4 K/uL (4.1-10.2)
[2018-04-01 03:39] LABS: TROP-I INTERPRETATION NEGATIVE; TROPONIN-I 0.01 ng/mL (0.0-0.30)
[2018-04-01 08:59] LABS: APPEARANCE SL.HAZY ((CLEAR)); BILIRUBIN NEGATIVE; BLOOD NEGATIVE; COLOR YELLOW ((YELLOW)); GLUCOSE (STRIP) NEGATIVE; KETONES NEGATIVE; LEUKOCYTES NEGATIVE; NITRITE NEGATIVE; PROTEIN (STRIP) 100; SPECIFIC GRAVITY 1.016 (1.000-1.030); UROBILINOGEN 0.2 MG/DL (0.2-1.0)
[2018-04-01 09:02] LABS: PTT 22.6 SEC (25-37)
[2018-04-01 09:05] LABS: BACTERIA 3+ /HPF; EPITHELIAL CELLS RARE /HPF; HYALINE CASTS 15-20 /LPF; MUCUS NONE SEEN /LPF; RED BLOOD CELLS 0-5 /HPF (0-5); UCUL ADDED? YES
[2018-04-01 11:31] LABS: HEPATITIS B SURFACE ANTIGEN Nonreactive; HEPATITIS C ANTIBODY Nonreactive
[2018-04-01 11:32] LABS: ANTI-HEPATITIS A VIRUS (IGM) Nonreactive; ANTI-HEPATITIS B CORE (IGM) Nonreactive
[2018-04-02] VITALS (10 sets, daily range): BP systolic 138–186; BP diastolic 82–108
[2018-04-02 05:19] LABS: HEMATOCRIT 30.7 % (38.0-50.0); HEMOGLOBIN 9.3 G/DL (12.5-16.6); MCH 25.6 PG (29.0-34.0); MCHC 30.3 G/DL (30.0-36.0); MCV 84.6 FL (86-99); PLATELET COUNT 159 K/uL (156-360); RBC DIS.WIDTH-CV 16.2 % (11.8-14.6); RBC DIS.WIDTH-SD 50.6 % (39-53); RED BLOOD COUNT 3.63 M/uL (4.00-5.50); WHITE BLOOD COUNT 6.7 K/uL (4.1-10.2)
[2018-04-02 05:44] LABS: ALBUMIN 3.6 G/DL (3.2-4.8); ALKALINE PHOSPHATASE 162 IU/L (3-129); ALT (GPT) 103 IU/L (3-49); AST (GOT) 55 IU/L (2-34); CHLORIDE 113 MEQ/L (99-109); CREATININE 2.4 MG/DL (0.6-1.3); GFR ESTIMATE (CALCULATED) 37 mL/min/ (58.99-99999); POTASSIUM 5.3 MEQ/L (3.7-5.4); SODIUM 137 MEQ/L (136-147); TOTAL BILIRUBIN 0.5 MG/DL (0.0-1.0); TOTAL PROTEIN 5.9 G/DL (6.4-8.3); UREA NITROGEN (BUN) 33 mg/dL (9-23)
[2018-04-02 05:54] LABS: GLUCOSE 95 mg/dL (70-99)
[2018-04-03] VITALS (7 sets, daily range): BP systolic 147–198; BP diastolic 91–109
[2018-04-03 06:09] LABS: ALBUMIN 3.5 G/DL (3.2-4.8); ALKALINE PHOSPHATASE 179 IU/L (3-129); ALT (GPT) 93 IU/L (3-49); AST (GOT) 58 IU/L (2-34); CHLORIDE 111 MEQ/L (99-109); GFR ESTIMATE (CALCULATED) 51 mL/min/ (58.99-99999); GLUCOSE 71 mg/dL (70-99); PHOSPHORUS 3.9 mg/dL (2.5-4.9); POTASSIUM 5.4 MEQ/L (3.7-5.4); SODIUM 139 MEQ/L (136-147); TOTAL BILIRUBIN 0.6 MG/DL (0.0-1.0); TOTAL PROTEIN 5.8 G/DL (6.4-8.3); UREA NITROGEN (BUN) 30 mg/dL (9-23)
[2018-04-03 06:30] LABS: CREATININE 1.8 MG/DL (0.6-1.3)
[2018-04-03 06:47] LABS: HEMATOCRIT 30.9 % (38.0-50.0); HEMOGLOBIN 9.7 G/DL (12.5-16.6); MCH 26.6 PG (29.0-34.0); MCHC 31.4 G/DL (30.0-36.0); MCV 84.7 FL (86-99); PLATELET COUNT 157 K/uL (156-360); RBC DIS.WIDTH-CV 16.2 % (11.8-14.6); RBC DIS.WIDTH-SD 50.3 % (39-53); RED BLOOD COUNT 3.65 M/uL (4.00-5.50); WHITE BLOOD COUNT 5.3 K/uL (4.1-10.2)
[2018-04-04 03:14] VITALS: BP 190/110
[2018-04-04 05:28] LABS: HEMATOCRIT 31.4 % (38.0-50.0); HEMOGLOBIN 9.6 G/DL (12.5-16.6); MCH 25.7 PG (29.0-34.0); MCHC 30.6 G/DL (30.0-36.0); MCV 84.2 FL (86-99); PLATELET COUNT 158 K/uL (156-360); RBC DIS.WIDTH-CV 15.9 % (11.8-14.6); RED BLOOD COUNT 3.73 M/uL (4.00-5.50); WHITE BLOOD COUNT 5.4 K/uL (4.1-10.2)
[2018-04-04 05:57] LABS: ALBUMIN 3.4 G/DL (3.2-4.8); ALKALINE PHOSPHATASE 171 IU/L (3-129); ALT (GPT) 99 IU/L (3-49); CHLORIDE 109 MEQ/L (99-109); CREATININE 1.8 MG/DL (0.6-1.3); DIRECT BILIRUBIN 0.1 mg/dL (0.0-0.3); GFR ESTIMATE (CALCULATED) 51 mL/min/ (58.99-99999); PHOSPHORUS 3.5 mg/dL (2.5-4.9); POTASSIUM 5.2 MEQ/L (3.7-5.4); SODIUM 136 MEQ/L (136-147); UREA NITROGEN (BUN) 29 mg/dL (9-23)
[2018-04-04 06:12] LABS: GLUCOSE 317 mg/dL (70-99); TOTAL BILIRUBIN 0.4 MG/DL (0.0-1.0)
[2018-04-04 06:13] LABS: AST (GOT) 94 IU/L (2-34)
[2018-04-04 07:32] VITALS: BP 185/97
[2018-04-04 12:35] VITALS: BP 180/101
[2018-04-04 17:37] VITALS: BP 173/102
[2018-04-04 19:50] VITALS: BP 218/136
[2018-04-04 22:30] VITALS: BP 222/126
[2018-04-05] VITALS (9 sets, daily range): BP systolic 109–210; BP diastolic 98–125
[2018-04-05 05:23] LABS: HEMATOCRIT 31.5 % (38.0-50.0); HEMOGLOBIN 9.7 G/DL (12.5-16.6); MCH 25.6 PG (29.0-34.0); MCHC 30.8 G/DL (30.0-36.0); MCV 83.1 FL (86-99); PLATELET COUNT 173 K/uL (156-360); RBC DIS.WIDTH-CV 15.7 % (11.8-14.6); RBC DIS.WIDTH-SD 47.8 % (39-53); RED BLOOD COUNT 3.79 M/uL (4.00-5.50); WHITE BLOOD COUNT 4.9 K/uL (4.1-10.2)
[2018-04-05 06:27] LABS: CHLORIDE 107 MEQ/L (99-109); CREATININE 1.6 MG/DL (0.6-1.3); GFR ESTIMATE (CALCULATED) 59 mL/min/ (58.99-99999); POTASSIUM 4.7 MEQ/L (3.7-5.4); SODIUM 139 MEQ/L (136-147); UREA NITROGEN (BUN) 23 mg/dL (9-23)
[2018-04-05 06:28] LABS: GLUCOSE 78 mg/dL (70-99)
[2018-04-06] VITALS (11 sets, daily range): BP systolic 120–216; BP diastolic 68–128
[2018-04-06 05:26] LABS: BASOPHIL (%) 0.6 % (0-1); EOSINOPHIL (%) 1.7 % (0-5); EOSINOPHIL COUNT 0.1 K/uL (0-0.3); HEMATOCRIT 32.3 % (38.0-50.0); HEMOGLOBIN 10.4 G/DL (12.5-16.6); IMMATURE GRANULOCYTE (%) 0.4 % (0.0-0.7); LYMPHOCYTE (%) 13.6 % (15-42); LYMPHOCYTE COUNT 0.7 K/uL (1.0-2.8); MCH 26.5 PG (29.0-34.0); MCHC 32.2 G/DL (30.0-36.0); MCV 82.4 FL (86-99); MONOCYTE (%) 11.7 % (3-12); MONOCYTE COUNT 0.6 K/uL (0-0.8); NEUTROPHIL COUNT 3.8 K/uL (1.8-6.4); PLATELET COUNT 190 K/uL (156-360); RBC DIS.WIDTH-CV 15.9 % (11.8-14.6); RBC DIS.WIDTH-SD 47.8 % (39-53); RED BLOOD COUNT 3.92 M/uL (4.00-5.50); WHITE BLOOD COUNT 5.2 K/uL (4.1-10.2)
[2018-04-06 05:56] LABS: A/G RATIO 1.5 (1.1-1.8); ALBUMIN 3.7 G/DL (3.4-5.0); GLOBULINS 2.5 G/DL (2.3-3.5); TOTAL PROTEIN 6.2 G/DL (6.4-8.2)
[2018-04-06 06:14] LABS: ALBUMIN 3.8 G/DL (3.2-4.8); ALKALINE PHOSPHATASE 174 IU/L (3-129); ALT (GPT) 82 IU/L (3-49); CHLORIDE 104 MEQ/L (99-109); CREATININE 1.6 MG/DL (0.6-1.3); DIRECT BILIRUBIN 0.1 mg/dL (0.0-0.3); FERRITIN 40 NG/ML (22-322); GFR ESTIMATE (CALCULATED) 59 mL/min/ (58.99-99999); POTASSIUM 4.4 MEQ/L (3.7-5.4); SODIUM 139 MEQ/L (136-147); TOTAL PROTEIN 6.5 G/DL (6.4-8.3); UREA NITROGEN (BUN) 20 mg/dL (9-23)
[2018-04-06 06:16] LABS: AST (GOT) 48 IU/L (2-34); GLUCOSE 243 mg/dL (70-99); TOTAL BILIRUBIN 0.5 MG/DL (0.0-1.0)
[2018-04-06 07:47] LABS: FOLIC ACID (FOLATE) > 22.0 NG/ML (5.0-22.0)
[2018-04-06 15:29] LABS: ALBUMIN 3.36 G/DL (3.6-4.9); ALPHA-2 GLOBULIN 0.73 G/DL (0.45-0.85); BETA-GLOBULIN 0.87 G/DL (0.65-1.15); GAMMA-GLOBULIN 0.94 G/DL (0.60-1.35)
[2018-04-07] VITALS (8 sets, daily range): BP systolic 132–185; BP diastolic 61–105
[2018-04-07 05:50] LABS: HEMATOCRIT 30.7 % (38.0-50.0); HEMOGLOBIN 9.7 G/DL (12.5-16.6); MCH 26.4 PG (29.0-34.0); MCHC 31.6 G/DL (30.0-36.0); MCV 83.7 FL (86-99); PLATELET COUNT 184 K/uL (156-360); RBC DIS.WIDTH-CV 16.2 % (11.8-14.6); RBC DIS.WIDTH-SD 49.1 % (39-53); RED BLOOD COUNT 3.67 M/uL (4.00-5.50); WHITE BLOOD COUNT 7.1 K/uL (4.1-10.2)
[2018-04-07 06:11] LABS: CHLORIDE 105 MEQ/L (99-109); CREATININE 1.9 MG/DL (0.6-1.3); GFR ESTIMATE (CALCULATED) 48 mL/min/ (58.99-99999); GLUCOSE 222 mg/dL (70-99); IRON 32 MCG/DL (35-150); POTASSIUM 4.9 MEQ/L (3.7-5.4); SODIUM 138 MEQ/L (136-147); UREA NITROGEN (BUN) 22 mg/dL (9-23)
[2018-04-08] VITALS (12 sets, daily range): BP systolic 130–200; BP diastolic 71–122
[2018-04-08 06:30] LABS: ALBUMIN 3.5 G/DL (3.2-4.8); ALKALINE PHOSPHATASE 174 IU/L (3-129); ALT (GPT) 46 IU/L (3-49); CHLORIDE 103 MEQ/L (99-109); CREATININE 1.7 MG/DL (0.6-1.3); DIRECT BILIRUBIN 0.1 mg/dL (0.0-0.3); GFR ESTIMATE (CALCULATED) 55 mL/min/ (58.99-99999); GLUCOSE 266 mg/dL (70-99); POTASSIUM 5.1 MEQ/L (3.7-5.4); SODIUM 137 MEQ/L (136-147); TOTAL PROTEIN 5.7 G/DL (6.4-8.3); UREA NITROGEN (BUN) 21 mg/dL (9-23)
[2018-04-08 06:31] LABS: AST (GOT) 20 IU/L (2-34); TOTAL BILIRUBIN 0.3 MG/DL (0.0-1.0)
[2018-04-08] MEDS ORDERED: LABETALOL HCL200 MG PO (10:08)
[2018-04-08] MEDS ORDERED: PERCOCET 5/31 TABLET PO (10:13)
[2018-04-09 03:29] VITALS: BP 108/62
[2018-04-09 07:11] VITALS: BP 123/69
[2018-04-09] MEDS ORDERED: LONITEN2.5 MG PO (11:50)
[2018-04-09] MEDS ORDERED: NIFEDIPINE ER30 MG PO (11:51)
[2018-04-09] MEDS ORDERED: BYSTOLIC10 MG PO (11:52)
[2018-04-09 12:00] VITALS: BP 116/59
[2018-04-09 13:29] LABS: GLUCOSE 451 mg/dL (70-99)
== END 2018-04-09 16:38 | DRG 872 ==
LOC: EME 18:04 → 4EAST 04-01 00:56 → EDOF 04-01 00:56 → ENRESERV 04-01 00:57 → 4EAST 04-01 02:09
PROVIDERS: Emergency Medicine; Family Medicine; Hospitalist; Internal Medicine; Internal Medicine Nephrology; Specialist
PROC: 0DJD8ZZ Inspection of Lower Intestinal Tract, Via Natural or Artificial Opening Endoscopic (ICD-10-PCS; principal; 2018-04-03)
DX: A41.9 Sepsis, unspecified organism (principal); N17.9 Acute kidney failure, unspecified; A04.72 Enterocolitis due to Clostridium difficile, not specified as recurrent; I12.9 Hypertensive chronic kidney disease with stage 1 through stage 4 chronic kidney disease, or unspecified chronic kidney disease; N18.3 Chronic kidney disease, stage 3 (moderate); R55 Syncope and collapse; E11.22 Type 2 diabetes mellitus with diabetic chronic kidney disease; K21.9 Gastro-esophageal reflux disease without esophagitis; F17.200 Nicotine dependence, unspecified, uncomplicated; E86.0 Dehydration; E87.2 Acidosis; D50.9 Iron deficiency anemia, unspecified; E87.5 Hyperkalemia; M60.9 Myositis, unspecified; R79.89 Other specified abnormal findings of blood chemistry; R18.8 Other ascites; G89.29 Other chronic pain; R33.9 Retention of urine, unspecified; Z53.09 Procedure and treatment not carried out because of other contraindication
CPT/HCPCS: 70450; 71045; 74176; 76770; 80048; 80053; 80069; 80074; 80076; 81003; 82140; 82390; 82607; 82728; 82746; 82948; 83540; 83605; 83690; 83735; 84100; 84165; 84439 GA; 84443; 84443 GA; 84466; 84484; 84999; 85025; 85027; 85610; 85730; 86256 90; 87086; 87493; 87641; 93005; 93975; 99281; 99284; J0360; J1644; J1815; J2405; J3010; J7030; J7040; S0028

== ENCOUNTER 2018-04-18 13:16 | Emergency (ER) | payer OTHER ==
[~2018-04-18] VITALS: Ht 185.4 cm; Wt 78.3 kg
[~2018-04-18 13:16] MED LIST changes: +ACETAMINOPHEN650 M5 PO; +ALDACTONE25 MG PO; +ANTIVERT12.5 MG PO; +ASCORBIC ACID250 MG PO; +BASAGLAR K100 UNIT/1 SC; +BYSTOLIC10 MG PO; +CLONIDINE HCL0.1 MG PO; +CLONIDINE HCL0.2 MG PO; +DUONEB 2.5-0.5 M3 ML AEROSOL; +FLOMAX0.4 MG PO; +HYDRALAZINE HCL50 MG PO; +LABETALOL HCL200 MG PO; +LASIX40 MG PO; +LONITEN2.5 MG PO; +METOPROLOL TAR100 MG PO; +NIFEDIPINE ER30 MG PO; +SERTRALINE HCL100 MG PO; +TYLENOL REGULA325 MG PO; +VERAPAMIL HCL80 MG PO
[2018-04-18 14:52] LABS: HEMATOCRIT 33.9 % (38.0-50.0); MCH 26.6 PG (29.0-34.0); MCHC 32.4 G/DL (30.0-36.0); MCV 81.9 FL (86-99); RBC DIS.WIDTH-CV 15.7 % (11.8-14.6); RBC DIS.WIDTH-SD 46.9 % (39-53); RED BLOOD COUNT 4.14 M/uL (4.00-5.50); WHITE BLOOD COUNT 10.3 K/uL (4.1-10.2)
[2018-04-18 14:54] LABS: PLATELET COUNT 265 K/uL (156-360)
[2018-04-18 15:01] LABS: ALBUMIN 4.1 g/dL (3.2-4.8); CHLORIDE 116 mEq/L (99-109); POTASSIUM 4.7 mEq/L (3.7-5.4); SODIUM 142 mEq/L (136-147)
[2018-04-18 15:03] LABS: GLUCOSE 59 mg/dL (70-99); TOTAL PROTEIN 7.4 g/dL (6.4-8.3)
[2018-04-18 15:05] LABS: TOTAL BILIRUBIN 0.4 mg/dL (0.0-1.0)
[2018-04-18 15:07] LABS: ALKALINE PHOSPHATASE 170 IU/L (3-129); CREATININE 2.7 mg/dL (0.6-1.3); GFR ESTIMATE (CALCULATED) 32 mL/min/ (58.99-99999)
[2018-04-18 15:08] LABS: AST (GOT) 43 IU/L (2-34); UREA NITROGEN (BUN) 47 mg/dL (9-23)
[2018-04-18 15:10] LABS: ALT (GPT) 54 IU/L (3-49)
[2018-04-18 15:15] LABS: TROP-I INTERPRETATION NEGATIVE; TROPONIN-I 0.02 ng/mL (0.0-0.30)
[2018-04-18 16:49] LABS: APPEARANCE CLEAR ((CLEAR)); BILIRUBIN NEGATIVE; BLOOD NEGATIVE; COLOR YELLOW ((YELLOW)); GLUCOSE (STRIP) NEGATIVE; KETONES NEGATIVE; LEUKOCYTES NEGATIVE; NITRITE NEGATIVE; PROTEIN (STRIP) 100; SPECIFIC GRAVITY 1.013 (1.000-1.030); UROBILINOGEN 0.2 MG/DL (0.2-1.0)
[2018-04-18 16:56] LABS: BACTERIA 2+ /HPF; EPITHELIAL CELLS NONE SEEN /HPF; HYALINE CASTS 0-5 /LPF; MUCUS TRACE /LPF; RED BLOOD CELLS 0-5 /HPF (0-5); WHITE BLOOD CELLS 0-5 /HPF (0-5)
[2018-04-18 19:04] VITALS: BP 153/89
== END 2018-04-18 19:13 | disposition home or self-care (01) ==
LOC: EME 13:16
PROVIDERS: Emergency Medicine
DX: E11.649 Type 2 diabetes mellitus with hypoglycemia without coma (principal); I11.0 Hypertensive heart disease with heart failure; I50.9 Heart failure, unspecified; N19 Unspecified kidney failure; Z86.73 Personal history of transient ischemic attack (TIA), and cerebral infarction without residual deficits; Z79.82 Long term (current) use of aspirin; Z79.4 Long term (current) use of insulin; F17.200 Nicotine dependence, unspecified, uncomplicated
CPT/HCPCS: 71045; 80053; 81003; 82948; 84484; 85027; 93005; J7040

== ENCOUNTER 2018-04-22 10:20 | Inpatient (IN) | payer OTHER ==
[~2018-04-22] VITALS: Ht 185.4 cm; Wt 88.0 kg
[~2018-04-22 10:20] MED LIST changes: +CATAPRES0.2 MG PO; -CLONIDINE HCL0.1 MG PO; -CLONIDINE HCL0.2 MG PO
[2018-04-22 11:52] LABS: BASOPHIL (%) 0.3 % (0-1); EOSINOPHIL (%) 0.1 % (0-5); HEMATOCRIT 28.7 % (38.0-50.0); HEMOGLOBIN 9.1 G/DL (12.5-16.6); IMMATURE GRANULOCYTE (%) 1.3 % (0.0-0.7); LYMPHOCYTE (%) 4.6 % (15-42); LYMPHOCYTE COUNT 0.5 K/uL (1.0-2.8); MCH 26.6 PG (29.0-34.0); MCHC 31.7 G/DL (30.0-36.0); MCV 83.9 FL (86-99); MONOCYTE (%) 6.4 % (3-12); MONOCYTE COUNT 0.7 K/uL (0-0.8); NEUTROPHIL (%) 87.3 % (45-76); NEUTROPHIL COUNT 8.9 K/uL (1.8-6.4); PLATELET COUNT 199 K/uL (156-360); RBC DIS.WIDTH-CV 16.1 % (11.8-14.6); RBC DIS.WIDTH-SD 49.9 % (39-53); RED BLOOD COUNT 3.42 M/uL (4.00-5.50); WHITE BLOOD COUNT 10.1 K/uL (4.1-10.2)
[2018-04-22 12:01] LABS: CHLORIDE 116 mEq/L (99-109); POTASSIUM 5.6 mEq/L (3.7-5.4); SODIUM 140 mEq/L (136-147)
[2018-04-22 12:04] LABS: GLUCOSE 169 mg/dL (70-99)
[2018-04-22 12:07] LABS: ALKALINE PHOSPHATASE 184 IU/L (3-129)
[2018-04-22 12:10] LABS: ALT (GPT) 79 IU/L (3-49); CREATINE KINASE 559 IU/L (1-294); TOTAL CK 559 IU/L (1-294)
[2018-04-22 12:12] LABS: AST (GOT) 108 IU/L (2-34); CREATININE 4.2 mg/dL (0.6-1.3); GFR ESTIMATE (CALCULATED) 19 mL/min/ (58.99-99999); TOTAL BILIRUBIN 0.5 mg/dL (0.0-1.0); UREA NITROGEN (BUN) 75 mg/dL (9-23)
[2018-04-22 12:14] LABS: TROP-I INTERPRETATION NEGATIVE; TROPONIN-I 0.06 ng/mL (0.0-0.30)
[2018-04-22 12:16] LABS: CK-MB 11.9 ng/mL (0.0-4.9); CKMB RELATIVE INDEX 2.1 (0.0-3.9)
[2018-04-22 14:22] LABS: AMPHETAMINE NEGATIVE (500 ng/mL); BARBITURATES NEGATIVE (200 ng/mL); BENZODIAZEPINES NEGATIVE (150 ng/mL); BUPRENORPHINE NEGATIVE (10 ng/mL); COCAINE PRESUMPTIVE POSITIVE (150 ng/mL); METHADONE NEGATIVE (200 ng/mL); METHAMPHETAMINE NEGATIVE (500 ng/mL); OPIATES (MORPHINE) NEGATIVE (100 ng/mL); OXYCODONE PRESUMPTIVE POSITIVE (100 ng/mL); PHENCYCLIDINE PRESUMPTIVE POSITIVE (25 ng/mL); PROPOXYPHENE NEGATIVE (300 ng/mL); THC CANNABINOIDS NEGATIVE (50 ng/mL); TRICYCLIC ANTIDEPRESSANTS NEGATIVE (300 ng/mL)
[2018-04-22 14:55] LABS: APPEARANCE CLEAR ((CLEAR)); BILIRUBIN NEGATIVE; BLOOD NEGATIVE; COLOR YELLOW ((YELLOW)); GLUCOSE (STRIP) NEGATIVE; KETONES NEGATIVE; LEUKOCYTES TRACE; NITRITE NEGATIVE; PROTEIN (STRIP) 100; SPECIFIC GRAVITY 1.015 (1.000-1.030); UROBILINOGEN 0.2 MG/DL (0.2-1.0)
[2018-04-22 15:00] LABS: BACTERIA RARE /HPF; EPITHELIAL CELLS RARE /HPF; HYALINE CASTS 0-5 /LPF; MUCUS TRACE /LPF; RED BLOOD CELLS 0-5 /HPF (0-5); UCUL ADDED? NO; WHITE BLOOD CELLS 0-5 /HPF (0-5)
[2018-04-22 15:40] VITALS: BP 160/93
[2018-04-22 16:00] VITALS: BP 160/93
[2018-04-22] MEDS ORDERED: LABETALOL HCL200 MG PO (16:12)
[2018-04-22] MEDS ORDERED: NIFEDIPINE ER60 MG PO (16:13)
[2018-04-22] MEDS ORDERED: MINOXIDIL2.5 MG PO (16:13)
[2018-04-22] MEDS ORDERED: GLUCOSE GEL38 GM PO (16:19)
[2018-04-22] MEDS ORDERED: TYLENOL REGULA325 MG PO (16:21)
[2018-04-22 18:28] LABS: TROP-I INTERPRETATION NEGATIVE; TROPONIN-I 0.14 ng/mL (0.0-0.30)
[2018-04-22 18:34] LABS: A/G RATIO 1.5 (1.1-1.8); ALBUMIN 4.1 G/DL (3.4-5.0); C4 COMPLEMENT 38 MG/DL (10-40); GLOBULINS 2.7 G/DL (2.3-3.5); TOTAL PROTEIN 6.8 G/DL (6.4-8.2)
[2018-04-22 18:36] LABS: CHLORIDE 113 MEQ/L (99-109); GFR ESTIMATE (CALCULATED) 20 mL/min/ (58.99-99999); GLUCOSE 193 mg/dL (70-99); POTASSIUM 5.4 MEQ/L (3.7-5.4); SODIUM 137 MEQ/L (136-147); UREA NITROGEN (BUN) 77 mg/dL (9-23)
[2018-04-22 19:54] VITALS: BP 181/96
[2018-04-23 00:40] VITALS: BP 136/68
[2018-04-23 01:03] LABS: TROP-I INTERPRETATION NEGATIVE; TROPONIN-I 0.15 ng/mL (0.0-0.30)
[2018-04-23 03:34] VITALS: BP 160/83
[2018-04-23 05:35] LABS: BASOPHIL (%) 0.2 % (0-1); EOSINOPHIL (%) 0.6 % (0-5); EOSINOPHIL COUNT 0.1 K/uL (0-0.3); HEMATOCRIT 26.9 % (38.0-50.0); HEMOGLOBIN 8.3 G/DL (12.5-16.6); IMMATURE GRANULOCYTE (%) 1.1 % (0.0-0.7); LYMPHOCYTE (%) 12.8 % (15-42); LYMPHOCYTE COUNT 1.1 K/uL (1.0-2.8); MCH 25.6 PG (29.0-34.0); MCHC 30.9 G/DL (30.0-36.0); MONOCYTE (%) 13.3 % (3-12); MONOCYTE COUNT 1.1 K/uL (0-0.8); PLATELET COUNT 186 K/uL (156-360); RBC DIS.WIDTH-CV 16.3 % (11.8-14.6); RBC DIS.WIDTH-SD 49.5 % (39-53); RED BLOOD COUNT 3.24 M/uL (4.00-5.50); WHITE BLOOD COUNT 8.4 K/uL (4.1-10.2)
[2018-04-23 05:58] LABS: TROP-I INTERPRETATION NEGATIVE; TROPONIN-I 0.17 ng/mL (0.0-0.30)
[2018-04-23 06:05] LABS: CHLORIDE 113 MEQ/L (99-109); CREATINE KINASE 344 IU/L (1-294); GFR ESTIMATE (CALCULATED) 17 mL/min/ (58.99-99999); POTASSIUM 4.9 MEQ/L (3.7-5.4); SODIUM 140 MEQ/L (136-147); UREA NITROGEN (BUN) 76 mg/dL (9-23)
[2018-04-23 06:06] LABS: CREATININE 4.7 MG/DL (0.6-1.3); GLUCOSE 95 mg/dL (70-99)
[2018-04-23 08:05] LABS: ALBUMIN 3.5 G/DL (3.2-4.8); ALKALINE PHOSPHATASE 139 IU/L (3-129); ALT (GPT) 46 IU/L (3-49); AST (GOT) 32 IU/L (2-34); TOTAL BILIRUBIN 0.3 MG/DL (0.0-1.0); TOTAL PROTEIN 6.3 G/DL (6.4-8.3)
[2018-04-23 08:10] VITALS: BP 130/65
[2018-04-23 10:28] LABS: HEPATITIS B SURFACE ANTIGEN Nonreactive; HEPATITIS C ANTIBODY Nonreactive
[2018-04-23 10:29] LABS: ANTI-HEPATITIS A VIRUS (IGM) Nonreactive
[2018-04-23 10:30] LABS: ANTI-HEPATITIS B CORE (IGM) Nonreactive
[2018-04-23 10:31] LABS: HEMOGLOBIN A1c (GLYCOHEMOGLOB) 9.2 % (Below 5.7)
[2018-04-23 12:11] VITALS: BP 122/55
[2018-04-23 15:03] VITALS: BP 147/84
[2018-04-23 18:55] VITALS: BP 120/65
[2018-04-24] VITALS (7 sets, daily range): BP systolic 120–180; BP diastolic 59–99
[2018-04-24 05:45] LABS: BASOPHIL (%) 0.4 % (0-1); EOSINOPHIL (%) 1.1 % (0-5); EOSINOPHIL COUNT 0.1 K/uL (0-0.3); HEMATOCRIT 25.5 % (38.0-50.0); IMMATURE GRANULOCYTE (%) 0.7 % (0.0-0.7); LYMPHOCYTE (%) 9.4 % (15-42); LYMPHOCYTE COUNT 0.9 K/uL (1.0-2.8); MCHC 31.4 G/DL (30.0-36.0); MCV 82.8 FL (86-99); MONOCYTE (%) 11.5 % (3-12); MONOCYTE COUNT 1.1 K/uL (0-0.8); NEUTROPHIL (%) 76.9 % (45-76); NEUTROPHIL COUNT 7.4 K/uL (1.8-6.4); PLATELET COUNT 174 K/uL (156-360); RBC DIS.WIDTH-CV 16.5 % (11.8-14.6); RBC DIS.WIDTH-SD 49.4 % (39-53); RED BLOOD COUNT 3.08 M/uL (4.00-5.50); WHITE BLOOD COUNT 9.6 K/uL (4.1-10.2)
[2018-04-24 06:57] LABS: ALBUMIN 3.6 G/DL (3.2-4.8); ALKALINE PHOSPHATASE 118 IU/L (3-129); ALT (GPT) 39 IU/L (3-49); AST (GOT) 18 IU/L (2-34); CHLORIDE 110 MEQ/L (99-109); CREATININE 5.3 MG/DL (0.6-1.3); GFR ESTIMATE (CALCULATED) 15 mL/min/ (58.99-99999); POTASSIUM 5.2 MEQ/L (3.7-5.4); SODIUM 137 MEQ/L (136-147); TOTAL BILIRUBIN 0.3 MG/DL (0.0-1.0); TOTAL PROTEIN 6.1 G/DL (6.4-8.3); UREA NITROGEN (BUN) 78 mg/dL (9-23)
[2018-04-24 07:15] LABS: GLUCOSE 228 mg/dL (70-99)
[2018-04-24 11:08] LABS: ALPHA-1 GLOBULIN 0.35 G/DL (0.15-0.40); ALPHA-2 GLOBULIN 0.76 G/DL (0.45-0.85); BETA-GLOBULIN 0.87 G/DL (0.65-1.15); GAMMA-GLOBULIN 0.92 G/DL (0.60-1.35)
[2018-04-25] VITALS (7 sets, daily range): BP systolic 107–164; BP diastolic 57–88
[2018-04-25 05:55] LABS: BASOPHIL (%) 0.4 % (0-1); EOSINOPHIL (%) 1.9 % (0-5); EOSINOPHIL COUNT 0.1 K/uL (0-0.3); HEMATOCRIT 24.5 % (38.0-50.0); HEMOGLOBIN 7.9 G/DL (12.5-16.6); IMMATURE GRANULOCYTE (%) 0.7 % (0.0-0.7); LYMPHOCYTE (%) 12.1 % (15-42); LYMPHOCYTE COUNT 0.8 K/uL (1.0-2.8); MCH 26.2 PG (29.0-34.0); MCHC 32.2 G/DL (30.0-36.0); MCV 81.4 FL (86-99); NEUTROPHIL (%) 69.9 % (45-76); NEUTROPHIL COUNT 4.8 K/uL (1.8-6.4); PLATELET COUNT 188 K/uL (156-360); RBC DIS.WIDTH-CV 16.2 % (11.8-14.6); RED BLOOD COUNT 3.01 M/uL (4.00-5.50); WHITE BLOOD COUNT 6.8 K/uL (4.1-10.2)
[2018-04-25 06:19] LABS: CHLORIDE 111 MEQ/L (99-109); CREATININE 5.2 MG/DL (0.6-1.3); GFR ESTIMATE (CALCULATED) 15 mL/min/ (58.99-99999); GLUCOSE 148 mg/dL (70-99); POTASSIUM 4.8 MEQ/L (3.7-5.4); SODIUM 141 MEQ/L (136-147); UREA NITROGEN (BUN) 82 mg/dL (9-23)
[2018-04-26] VITALS (8 sets, daily range): BP systolic 138–166; BP diastolic 76–93
[2018-04-26 05:30] LABS: BASOPHIL (%) 0.5 % (0-1); EOSINOPHIL (%) 1.7 % (0-5); EOSINOPHIL COUNT 0.1 K/uL (0-0.3); HEMATOCRIT 24.3 % (38.0-50.0); HEMOGLOBIN 7.7 G/DL (12.5-16.6); IMMATURE GRANULOCYTE (%) 0.5 % (0.0-0.7); LYMPHOCYTE (%) 13.3 % (15-42); LYMPHOCYTE COUNT 0.9 K/uL (1.0-2.8); MCH 25.9 PG (29.0-34.0); MCHC 31.7 G/DL (30.0-36.0); MCV 81.8 FL (86-99); MONOCYTE (%) 13.9 % (3-12); MONOCYTE COUNT 0.9 K/uL (0-0.8); NEUTROPHIL (%) 70.1 % (45-76); NEUTROPHIL COUNT 4.5 K/uL (1.8-6.4); PLATELET COUNT 183 K/uL (156-360); RED BLOOD COUNT 2.97 M/uL (4.00-5.50); WHITE BLOOD COUNT 6.4 K/uL (4.1-10.2)
[2018-04-26 06:47] LABS: CHLORIDE 111 MEQ/L (99-109); CREATININE 5.3 MG/DL (0.6-1.3); GFR ESTIMATE (CALCULATED) 15 mL/min/ (58.99-99999); GLUCOSE 148 mg/dL (70-99); POTASSIUM 5.1 MEQ/L (3.7-5.4); SODIUM 142 MEQ/L (136-147); UREA NITROGEN (BUN) 82 mg/dL (9-23)
[2018-04-27 03:26] VITALS: BP 151/81
[2018-04-27 05:55] LABS: BASOPHIL (%) 0.3 % (0-1); EOSINOPHIL (%) 1.2 % (0-5); EOSINOPHIL COUNT 0.1 K/uL (0-0.3); HEMATOCRIT 25.1 % (38.0-50.0); IMMATURE GRANULOCYTE (%) 0.5 % (0.0-0.7); LYMPHOCYTE (%) 13.2 % (15-42); LYMPHOCYTE COUNT 0.9 K/uL (1.0-2.8); MCH 25.9 PG (29.0-34.0); MCHC 31.9 G/DL (30.0-36.0); MCV 81.2 FL (86-99); MONOCYTE (%) 13.1 % (3-12); MONOCYTE COUNT 0.9 K/uL (0-0.8); NEUTROPHIL (%) 71.7 % (45-76); NEUTROPHIL COUNT 4.7 K/uL (1.8-6.4); NRBC (%) 0.3 /100 WBC (0-0); PLATELET COUNT 192 K/uL (156-360); RBC DIS.WIDTH-CV 16.4 % (11.8-14.6); RBC DIS.WIDTH-SD 47.9 % (39-53); RED BLOOD COUNT 3.09 M/uL (4.00-5.50); WHITE BLOOD COUNT 6.6 K/uL (4.1-10.2)
[2018-04-27 06:18] LABS: IMMUNOGLOBULIN G 884 MG/DL (650-1600); IMMUNOGLOBULIN M 84 MG/DL (50-300)
[2018-04-27 06:27] LABS: CHLORIDE 112 MEQ/L (99-109); CREATININE 5.1 MG/DL (0.6-1.3); GFR ESTIMATE (CALCULATED) 15 mL/min/ (58.99-99999); LACTATE DEHYDROGENASE 239 IU/L (20-246); POTASSIUM 5.6 MEQ/L (3.7-5.4); SODIUM 145 MEQ/L (136-147); UREA NITROGEN (BUN) 79 mg/dL (9-23)
[2018-04-27 06:37] LABS: GLUCOSE 75 mg/dL (70-99)
[2018-04-27 07:25] VITALS: BP 201/116
[2018-04-27 08:32] VITALS: BP 176/94
[2018-04-27 10:35] LABS: HEPATITIS B SURFACE ANTIBODY Nonreactive
[2018-04-27 11:23] LABS: RENIN ACTIVITY 0.83 ng/mL/h (0.25-5.82)
[2018-04-27 13:03] LABS: GLOMERULAR BASEMENT MEMB ABY+ <1.0 AI (<1.0)
[2018-04-27 13:04] VITALS: BP 215/117
[2018-04-27 15:06] LABS: URINE TOTAL PROTEIN 60 MG/DL (0-10)
[2018-04-27 15:12] LABS: BENZODIAZEPINES, URINE SCREEN POSITIVE (200 ng/mL)
[2018-04-27 15:37] VITALS: BP 190/102
[2018-04-27 20:38] VITALS: BP 176/90
[2018-04-28 00:08] VITALS: BP 160/88
[2018-04-28 04:46] VITALS: BP 140/84
[2018-04-28 08:13] LABS: BASOPHIL (%) 0.4 % (0-1); EOSINOPHIL (%) 1.1 % (0-5); EOSINOPHIL COUNT 0.1 K/uL (0-0.3); HEMATOCRIT 26.5 % (38.0-50.0); HEMOGLOBIN 8.3 G/DL (12.5-16.6); IMMATURE GRANULOCYTE (%) 0.4 % (0.0-0.7); LYMPHOCYTE (%) 13.4 % (15-42); LYMPHOCYTE COUNT 0.6 K/uL (1.0-2.8); MCH 25.8 PG (29.0-34.0); MCHC 31.3 G/DL (30.0-36.0); MCV 82.3 FL (86-99); MONOCYTE (%) 19.2 % (3-12); MONOCYTE COUNT 0.9 K/uL (0-0.8); NEUTROPHIL (%) 65.5 % (45-76); PLATELET COUNT 194 K/uL (156-360); RBC DIS.WIDTH-CV 16.2 % (11.8-14.6); RBC DIS.WIDTH-SD 48.7 % (39-53); RED BLOOD COUNT 3.22 M/uL (4.00-5.50); WHITE BLOOD COUNT 4.6 K/uL (4.1-10.2)
[2018-04-28 09:00] LABS: ALBUMIN 3.5 G/DL (3.2-4.8); CHLORIDE 108 MEQ/L (99-109); PHOSPHORUS 4.4 mg/dL (2.5-4.9); POTASSIUM 4.6 MEQ/L (3.7-5.4); SODIUM 145 MEQ/L (136-147); UREA NITROGEN (BUN) 48 mg/dL (9-23)
[2018-04-28 09:02] LABS: CREATININE 3.8 MG/DL (0.6-1.3); GFR ESTIMATE (CALCULATED) 22 mL/min/ (58.99-99999); GLUCOSE 42 mg/dL (70-99)
[2018-04-28 11:08] VITALS: BP 157/84
[2018-04-28 15:43] VITALS: BP 133/72
[2018-04-28 21:00] VITALS: BP 148/108
[2018-04-29] VITALS (9 sets, daily range): BP systolic 131–199; BP diastolic 71–114
[2018-04-30] VITALS (7 sets, daily range): BP systolic 129–182; BP diastolic 71–107
[2018-04-30 11:13] LABS: BASOPHIL (%) 0.2 % (0-1); EOSINOPHIL (%) 1.6 % (0-5); EOSINOPHIL COUNT 0.2 K/uL (0-0.3); HEMATOCRIT 28.8 % (38.0-50.0); HEMOGLOBIN 8.8 G/DL (12.5-16.6); IMMATURE GRANULOCYTE (%) 0.5 % (0.0-0.7); LYMPHOCYTE (%) 9.7 % (15-42); LYMPHOCYTE COUNT 0.9 K/uL (1.0-2.8); MCH 26.3 PG (29.0-34.0); MCHC 30.6 G/DL (30.0-36.0); MONOCYTE (%) 11.4 % (3-12); MONOCYTE COUNT 1.1 K/uL (0-0.8); NEUTROPHIL (%) 76.6 % (45-76); NEUTROPHIL COUNT 7.4 K/uL (1.8-6.4); PLATELET COUNT 182 K/uL (156-360); RBC DIS.WIDTH-CV 16.8 % (11.8-14.6); RBC DIS.WIDTH-SD 51.9 % (39-53); RED BLOOD COUNT 3.35 M/uL (4.00-5.50); WHITE BLOOD COUNT 9.6 K/uL (4.1-10.2)
[2018-04-30 11:14] LABS: CHLORIDE 105 MEQ/L (99-109); CREATININE 3.3 MG/DL (0.6-1.3); GFR ESTIMATE (CALCULATED) 26 mL/min/ (58.99-99999); POTASSIUM 4.5 MEQ/L (3.7-5.4); SODIUM 144 MEQ/L (136-147); UREA NITROGEN (BUN) 39 mg/dL (9-23)
[2018-04-30 11:15] LABS: GLUCOSE 239 mg/dL (70-99)
[2018-05-01 04:14] VITALS: BP 151/85
[2018-05-01 05:28] LABS: BASOPHIL (%) 0.4 % (0-1); EOSINOPHIL (%) 1.2 % (0-5); EOSINOPHIL COUNT 0.1 K/uL (0-0.3); HEMATOCRIT 28.1 % (38.0-50.0); HEMOGLOBIN 8.5 G/DL (12.5-16.6); IMMATURE GRANULOCYTE (%) 0.5 % (0.0-0.7); LYMPHOCYTE (%) 11.5 % (15-42); MCH 25.9 PG (29.0-34.0); MCHC 30.2 G/DL (30.0-36.0); MCV 85.7 FL (86-99); MONOCYTE (%) 12.7 % (3-12); MONOCYTE COUNT 1.1 K/uL (0-0.8); NEUTROPHIL (%) 73.7 % (45-76); NEUTROPHIL COUNT 6.2 K/uL (1.8-6.4); PLATELET COUNT 192 K/uL (156-360); RBC DIS.WIDTH-CV 16.6 % (11.8-14.6); RBC DIS.WIDTH-SD 50.9 % (39-53); RED BLOOD COUNT 3.28 M/uL (4.00-5.50); WHITE BLOOD COUNT 8.5 K/uL (4.1-10.2)
[2018-05-01 06:19] LABS: CHLORIDE 104 MEQ/L (99-109); GFR ESTIMATE (CALCULATED) 31 mL/min/ (58.99-99999); GLUCOSE 231 mg/dL (70-99); POTASSIUM 4.5 MEQ/L (3.7-5.4); SODIUM 142 MEQ/L (136-147); UREA NITROGEN (BUN) 26 mg/dL (9-23)
[2018-05-01 06:22] LABS: CREATININE 2.8 MG/DL (0.6-1.3)
[2018-05-01 08:39] VITALS: BP 151/80
[2018-05-01] MEDS ORDERED: LEVEMIR100 UNIT/2 SC (11:31)
[2018-05-01] MEDS ORDERED: PERCOCET 5/31 TABLET PO (11:40)
[2018-05-01 12:05] VITALS: BP 135/82
== END 2018-05-01 14:06 | DRG 683 ==
LOC: EME 10:20 → 4EAST 13:17 → EDOF 13:17 → ENRESERV 13:18 → 4EAST 15:24 → CANRESERV 04-29 14:54 → ENRESERV 04-29 14:54 → 4EAST 05-01 14:06
PROVIDERS: Anesthesiology; Emergency Medicine; Hospitalist; Internal Medicine; Internal Medicine Nephrology
DX: N17.9 Acute kidney failure, unspecified (principal); E86.0 Dehydration; I13.2 Hypertensive heart and chronic kidney disease with heart failure and with stage 5 chronic kidney disease, or end stage renal disease; I50.9 Heart failure, unspecified; E11.22 Type 2 diabetes mellitus with diabetic chronic kidney disease; N18.6 End stage renal disease; M62.82 Rhabdomyolysis; E87.5 Hyperkalemia; E87.2 Acidosis; E11.649 Type 2 diabetes mellitus with hypoglycemia without coma; T38.3X5A Adverse effect of insulin and oral hypoglycemic [antidiabetic] drugs, initial encounter; D63.1 Anemia in chronic kidney disease; N27.0 Small kidney, unilateral; R19.7 Diarrhea, unspecified; F14.10 Cocaine abuse, uncomplicated; G89.29 Other chronic pain; M54.5 Low back pain; F41.9 Anxiety disorder, unspecified; K21.9 Gastro-esophageal reflux disease without esophagitis; F32.9 Major depressive disorder, single episode, unspecified; F17.200 Nicotine dependence, unspecified, uncomplicated; Z79.82 Long term (current) use of aspirin; Z79.4 Long term (current) use of insulin; Z88.5 Allergy status to narcotic agent; Z91.041 Radiographic dye allergy status; Z86.73 Personal history of transient ischemic attack (TIA), and cerebral infarction without residual deficits; Z91.19 Patient's noncompliance with other medical treatment and regimen
CPT/HCPCS: 70450; 71045; 71046; 74185; 76770; 80048; 80048 91; 80053; 80069; 80074; 80076; 80306 90; 81003; 82010; 82088 90; 82306; 82550; 82550 91; 82553; 82570; 82784; 82948; 83036; 83520 90; 83605; 83615; 83883 90; 84156; 84165; 84244 90; 84484; 84999; 85025; 86021 90; 86038; 86160; 86162 90; 86334; 86335; 86706; 87493; 87641; 93005; 93970; 94640; 94799; 99281; 99285; C1750; C1753; C1769; C1894; J0360; J0690; J0881; J1644; J1815; J1940; J2250; J2405; J3010; J7030; J7070; S0020